=== PATIENT | female | born 1935 | race Caucasian/White ===

== ENCOUNTER 2016-08-18 23:07 | Emergency (ER) | payer MEDICARE ==
[2016-08-18] MEDS ORDERED: predniSONE 20 MG TABLET PO STA (23:23)
[2016-08-18] MEDS ORDERED: IPRATROPIUM/ALBUTEROL 3 ML NEB INH STA (23:23)
[2016-08-18] MEDS ORDERED: IPRATROPIUM/ALBUTEROL 3 ML NEB INH ONE (23:28)
[2016-08-18] MEDS ORDERED: predniSONE 20 MG TABLET ONE (23:40)
[2016-08-19] MEDS ORDERED: ALBUTEROL 8 GM INHALER INH STA (00:09)
[2016-08-19] MEDS ORDERED: ALBUTEROL NEB 2.5 MG/3 ML INH STA (00:09)
[2016-08-19] MEDS ORDERED: ALBUTEROL NEB 2.5 MG/3 ML INH ONE (00:23)
[2016-08-19] MEDS ORDERED: ALBUTEROL 8 GM INHALER INH ONE (00:23)
== END 2016-08-19 00:47 | disposition home or self-care (01) ==
DX: J45.21 Mild intermittent asthma with (acute) exacerbation (principal); R03.0 Elevated blood-pressure reading, without diagnosis of hypertension
CPT/HCPCS: 71020; 94640; 94664; 99283; A9270; J7512; J7613; J7620

== ENCOUNTER 2016-09-12 13:43 | Outpatient (CLI) | payer MEDICARE | END 2016-09-12 13:44 | disposition critical access hospital (66) | LOC: EMS 13:43 | PROVIDERS: ATTEND Surgery | DX: R06.02 Shortness of breath (principal); M54.2 Cervicalgia | CPT/HCPCS: A0425; A0427 ==

== ENCOUNTER 2016-09-12 14:03 | Emergency (ER) | payer MEDICARE ==
[2016-09-12 14:09] VITALS: BP 153/43
[2016-09-12] MEDS ORDERED: ALBUTEROL NEB 2.5 MG/3 ML INH STA (14:10)
[2016-09-12] MEDS ORDERED: methylPREDNISolone SUCCINATE 125 MG/2 ML VIAL IVP STA (14:11)
--- NOTE | 2016-09-12 14:15 | ED Physician Documentation ---
PD HPI DYSPNEA - Stated complaint Stated Complaint: ASTHMA - Chief complaint Chief Complaint: Resp - History obtained from History obtained from: Patient, EMS, Other (Cyracom tablet) - History of Present Illness Timing - onset: Other (She has a history of asthma. She is visiting here from out of town and doesn't have any of her medications are inhalers. The last 3 days she's been short of breath with a mild cough but no chest pain or fever. It is similar prior episodes. She is feeling much better after a duo neb en route.) Review of Systems Constitutional: denies: Fever, Chills Cardiac: denies: Chest pain / pressure, Palpitations, Pedal edema, Calf pain Respiratory: reports: Dyspnea, Cough. denies: Hemoptysis, Wheezing GI: denies: Abdominal Pain PD PAST MEDICAL HISTORY - Past Medical History Respiratory: Asthma Musculoskeletal: Osteoarthritis - Present Medications Home Medications: Ambulatory Orders Medication Instructions Recorded Confirmed HYDROcodone/ACET 10/325 [Maceo 10 ORAL Q8HR PRN 08/18/16 mg/325 mg] predniSONE [Deltasone] 60 mg PO DAILY 5 Days 08/19/16 Albuterol Sulfate [Proventil Hfa 1 - 2 puffs IH Q4H PRN #1 09/12/16 Inhaler] [email or web address] predniSONE [Deltasone] 60 mg PO DAILY 5 Days 09/12/16 - Allergies Allergies/Adverse Reactions: Allergies Allergy/AdvReac Type Severity Reaction Status Date / Time No Known Drug Allergies Allergy Verified 09/12/16 14:09 - Social History Does the pt smoke?: No Smoking Status: Never smoker Does the pt drink ETOH?: No Does the pt have substance abuse?: No - Immunizations Immunizations are current?: Yes PD ED PE NORMAL - Vitals Vital signs reviewed: Yes - General General: Alert and oriented X 3, No acute distress - HEENT HEENT: PERRL, EOMI, Ears normal - Neck Neck: Supple, no meningeal sign, No bony TTP - Cardiac Cardiac: RRR, No murmur - Respiratory Respiratory: No respiratory distress, Other (wheezy throughout, not diminished, nonlabored) - Abdomen Abdomen: Non tender - Derm Derm: No rash - Neuro Neuro: Alert and oriented X 3, Normal speech - Psych Psych: Normal mood, Normal affect Results - Vitals Vitals: Vital Signs - 24 hr 09/12/16 14:00 Temperature 36.7 C Heart Rate 84 Respiratory 20 Rate Blood Pressure 153/43 H O2 Saturation 97 Oxygen O2 Source Room air PD MEDICAL DECISION MAKING - ED course ED course: She presents with an asthma exacerbation. She is already feeling much better after the duo neb en route. She is still little wheezy here and was administered another neb here as well as steroid. The patient and family were counseled as to the diagnosis and need for followup. I counseled the patient with regard to signs and symptoms that would necessitate an urgent reevaluation in the emergency department. They understand they are welcome to return at any time if worse or if not improving as expected. This document was made in part using voice recognition software. While efforts are made to proofread this document, sound alike and grammatical errors may occur. Departure - Departure Disposition: 01 Home, Self Care Clinical Impression: Asthma Qualifiers: Asthma severity: mild intermittent Asthma complication type: with acute exacerbation Qualified Code(s): J45.21 - Mild intermittent asthma with (acute) exacerbation Condition: Good Record reviewed to determine appropriate education?: Yes Instructions: Asthma Dc Prescriptions: predniSONE [Deltasone] 60 mg PO DAILY 5 Days Albuterol Sulfate [Proventil Hfa Inhaler] 1 - 2 puffs IH Q4H PRN #1 [email or web address] PRN Reason: Cough Print Language: Frisian Comments: Call your doctor to arrange a follow up appointment. Make the next available appointment. In the interim return anytime if worse or if new symptoms develop. Your blood pressure was elevated today on check in to the emergency department. This does not mean that you have hypertension, it is a common phenomenon to check into the emergency department and have elevated blood pressure. I recommend that you see your primary care physician within the week to have it rechecked when you're feeling better. Llame a larose mdico para concertar zia antonia de seguimiento. Jeb la prxima antonia disponible. En el retorno intermedio en cualquier momento si es peor o si se desarrollan nuevos sntomas. Larose presin arterial se elev hoy en el check-in al departamento de emergencia. [place] no significa que usted tiene hipertensin, es un fenmeno comn para comprobar en el departamento de emergencia y tienen presin arterial elevada. Recomiendo que brain a larsoe mdico de atencin primaria dentro de la semana para que se vuelva a verificar cuando se sienta mejor.
[2016-09-12] MEDS ORDERED: ALBUTEROL NEB 2.5 MG/3 ML INH ONE (14:18)
== END 2016-09-12 14:40 | disposition home or self-care (01) ==
LOC: EDUNIT# → ED 14:03
DX: J45.21 Mild intermittent asthma with (acute) exacerbation (principal); Z76.0 Encounter for issue of repeat prescription; R03.0 Elevated blood-pressure reading, without diagnosis of hypertension
CPT/HCPCS: 94640; 99283; J7613

== ENCOUNTER 2016-10-08 23:56 | Emergency (ER) | payer MEDICARE ==
--- NOTE | 2016-10-09 00:04 | ED Physician Documentation ---
PD HPI DYSPNEA - Stated complaint Stated Complaint: SHORTNESS OF BREATH - History obtained from History obtained from: Patient, Family - History of Present Illness Timing - onset: Enter time (23:00), Today Timing - details: Abrupt onset Pain level now: 0 Worsened by: Exertion Associated symptoms: Wheezing. No: Chest pain / discomfort Similar symptoms before: Diagnosis (asthma) Recently seen: Emergency Dept - Additional information Additional information: c/o sudden onset dyspnea and wheezing c/w previous asthma exacerbations. has been visiting [place] and thus does not have local PMD nor medications for her asthma (T+R last month from [facility] ED for same but has run out of the inhaler) Review of Systems Constitutional: denies: Fever Cardiac: reports: Reviewed and negative Respiratory: reports: Dyspnea, Wheezing. denies: Cough PD PAST MEDICAL HISTORY - Past Medical History Respiratory: Asthma Musculoskeletal: Osteoarthritis - Present Medications Home Medications: Ambulatory Orders Medication Instructions Recorded Confirmed HYDROcodone/ACET 10/325 [Brandon 10 1 each ORAL Q8HR PRN 08/18/16 10/09/16 mg/325 mg] Albuterol Sulfate [Proventil Hfa 1 - 2 puffs IH Q4H PRN #1 09/12/16 10/09/16 Inhaler] [email or web address] predniSONE [Deltasone] 40 mg PO DAILY 4 Days 10/09/16 - Allergies Allergies/Adverse Reactions: Allergies Allergy/AdvReac Type Severity Reaction Status Date / Time No Known Drug Allergies Allergy Verified 09/12/16 14:09 - Social History Does the pt smoke?: No Smoking Status: Never smoker Does the pt drink ETOH?: No Does the pt have substance abuse?: No - Immunizations Immunizations are current?: Yes PD ED PE NORMAL - Vitals Vital signs reviewed: Yes - General General: Alert and oriented X 3, No acute distress, Well developed/nourished - Cardiac Cardiac: RRR, No murmur - Respiratory Respiratory: No respiratory distress PD ED PE EXPANDED - Respiratory Respiratory: Wheezing (bilateral expiratory ) Results - Vitals Vitals: Vital Signs - 24 hr 10/09/16 10/09/16 10/09/16 00:04 00:20 00:52 Temperature 36.4 C L Heart Rate 57 L 70 90 Respiratory 22 18 20 Rate Blood Pressure 190/84 H 187/89 H O2 Saturation 95 97 10/09/16 01:00 Temperature Heart Rate 78 Respiratory 20 Rate Blood Pressure O2 Saturation Oxygen O2 Source Room air PD MEDICAL DECISION MAKING - ED course Complexity details: reviewed old records, re-evaluated patient (On reevaluation , after duoneb and PO prednisone, patient reports feeling significant improvement and is comfortable with d/c home, given rx for prednisone and albuterol MDI to take home), considered differential, d/w patient, d/w family Departure - Departure Disposition: Home, Self Care Clinical Impression: Asthma Condition: Good Instructions: ED Reactive Airway Disease Prescriptions: predniSONE [Deltasone] 40 mg PO DAILY 4 Days Discharge Date/Time: 10/09/16 01:18
[2016-10-09] MEDS ORDERED: predniSONE 20 MG TABLET PO STA (00:14)
[2016-10-09] MEDS ORDERED: IPRATROPIUM/ALBUTEROL 3 ML NEB INH STA (00:14)
[2016-10-09] MEDS ORDERED: IPRATROPIUM/ALBUTEROL 3 ML NEB INH ONE (00:20)
[2016-10-09] MEDS ORDERED: predniSONE 20 MG TABLET ONE (00:48)
[2016-10-09 00:53] VITALS: BP 187/89
[2016-10-09] MEDS ORDERED: ALBUTEROL 8 GM INHALER INH STA (00:57)
[2016-10-09] MEDS ORDERED: ALBUTEROL 18 GM INHALER INH ONE (01:04)
== END 2016-10-09 01:18 | disposition home or self-care (01) ==
LOC: ED 23:56
DX: J45.909 Unspecified asthma, uncomplicated (principal)
CPT/HCPCS: 94640; 94664; 99283; J7512; J7620

== ENCOUNTER 2017-01-03 17:45 | Emergency (ER) | payer MEDICARE ==
[2017-01-03] MEDS ORDERED: HYDROmorphone 1 MG/ML SYRINGE IVP STA (20:08)
[2017-01-03] MEDS ORDERED: ONDANSETRON 4 MG/2 ML VIAL IVP STA (20:08)
[2017-01-03 20:14] LABS: BILIRUBIN,URINE NEGATIVE (NEGATIVE); PH,URINE 5.5 PH (5.0-7.5)
[2017-01-03 20:17] LABS: UA CHARGE (STRIP ONLY) YES; UR CULTURE IF IND NOT INDICATED
[2017-01-03 20:28] LABS: BASOPHILS # (AUTO) 0.1 10^3/uL (0.0-0.1); BASOPHILS % (AUTO) 0.9 %; EOSINOPHILS # (AUTO) 0.1 10^3/uL (0.0-0.7); HCT - HEMATOCRIT 37.1 % (37.0-47.0); HGB - HEMOGLOBIN 12.5 g/dL (12.0-16.0); LYMPHOCYTES # (AUTO) 1.2 10^3/uL (1.5-3.5); LYMPHOCYTES % (AUTO) 11.9 %; MEAN CORPUSCULAR HEMOGLOBIN 32.1 pg (27.0-31.0); MEAN CORPUSCULAR HGB CONC 33.7 g/dL (32.0-36.0); MEAN CORPUSCULAR VOLUME 95.3 fL (81.0-99.0); MEAN PLATELET VOLUME 6.9 fL (7.9-10.8); MONOCYTES # (AUTO) 0.6 10^3/uL (0.0-1.0); MONOCYTES % (AUTO) 5.8 %; NEUTROPHILS % (AUTO) 80.4 %; RED BLOOD COUNT 3.89 10^6/uL (4.20-5.40); RED CELL DISTRIBUTION WIDTH 13.4 % (12.0-15.0); UNCORRECTED WHITE BLOOD COUNT 9.9 x10^3/uL; WHITE BLOOD COUNT 9.9 x10^3/uL (4.8-10.8)
[2017-01-03 20:38] LABS: CALCIUM 8.6 mg/dL (8.5-10.3); CREATININE 0.9 mg/dL (0.4-1.0); POTASSIUM 3.9 mmol/L (3.5-5.0)
[2017-01-03] MEDS ORDERED: ONDANSETRON 4 MG/2 ML VIAL ONE (20:53)
[2017-01-03] MEDS ORDERED: HYDROmorphone 1 MG/ML SYRINGE ONE (20:53)
--- NOTE | 2017-01-03 21:20 | CT Preliminary Report ---
Exam: CT Head W/O IMPRESSION: Generalized age-related cortical atrophic changes without evidence of acute intracranial abnormality. [facility] SITE ID: [id number]
[2017-01-03] MEDS ORDERED: SODIUM CHLORIDE 0.9% 1,000 ML IV ONE (21:22)
--- NOTE | 2017-01-03 21:27 | CT Preliminary Report ---
Exam: CT Cervical Spine W/O IMPRESSION: 1. No acute bony abnormality. 2. Degree of degenerative changes less than expected for age. [facility] SITE ID: [id number]
--- NOTE | 2017-01-03 21:41 | CT Preliminary Report ---
Exam: CT Lumbar Spine W/O IMPRESSION: 1. No acute bony abnormality. 2. 5.1 x 5.0 x 3.7 cm complex cystic lesion right ovary. Correlate clinically to determine if follow- up pelvic ultrasound on a nonemergent basis should be considered. 3. Chronic lung disease. 4. Moderate central spinal canal stenosis and small right-sided disk herniation L4-L5. [facility] SITE ID: [id number]
--- NOTE | 2017-01-03 21:52 | CT Preliminary Report ---
Exam: CT Pelvis W/O IMPRESSION: 1. Acute hairline fracture left inferior pubic ramus. 2. 5.1 x 5.0 x 3.7 cm cystic lesion right adnexa. This could represent an ovarian neoplasm. Correlate clinically to determine if a pelvic ultrasound on a nonemergent basis should be considered. 3. Small disk herniation to the right and moderate central spinal canal stenosis at L4-L5. 4. Normal bilateral hips. [facility] SITE ID: [id number]
--- NOTE | 2017-01-03 21:55 | CT Report ---
EXAM: CT CERVICAL SPINE WITHOUT CONTRAST DATE: 01/03/2017 08:50 p.m. HISTORY: Fall on stairs. Head trauma. Neck pain. COMPARISONS: None. TECHNIQUE: Thin-section axial images were acquired of the cervical spine without contrast. Post-proce ssing: Coronal and sagittal reformats. Other: None. In accordance with CT protocol optimization, one or more of the following dose reduction techniques w ere utilized for this exam: automated exposure control, adjustment of mA and/or KV based on patient s ize, or use of iterative reconstructive technique. FINDINGS: Alignment: 3 mm degenerative anterior subluxation of C2 on C3 as well as C3 on C4. Bones: No fracture or bone lesion. Interspace Levels/Facets: Multilevel mild to moderate degenerative changes. Greatest degree of central spinal canal stenosis is mild at C5-C6 and C6-C7. Old small central disk herniation at C5-C6. Multilevel mild to moderate bony neural foraminal compromise. Musculature: Normal. No fatty atrophy. Other: The paravertebral and prevertebral soft tissues are normal. The lung apices are clear. IMPRESSION: 1. No acute bony abnormality. 2. Degree of degenerative changes less than expected for age. [facility] Referring Provider Line: [phone] SITE ID: [id number]
--- NOTE | 2017-01-03 21:55 | CT Report ---
EXAM: CT HEAD EXAM DATE: 01/03/2017 08:49 p.m.. CLINICAL HISTORY: Closed head injury. COMPARISON: None. TECHNIQUE: Multiaxial CT images were obtained from the foramen magnum to the vertex. IV contrast: Non e. Reformats: Coronal. In accordance with CT protocol optimization, one or more of the following dose reduction techniques w ere utilized for this exam: automated exposure control, adjustment of mA and/or KV based on patient s ize, or use of iterative reconstructive technique. FINDINGS: Parenchyma: No intraparenchymal hemorrhage. No evidence of mass, midline shift, or CT findings of acu te infarction. Prado-white differentiation is distinct. Extraaxial Spaces: Normal for age. No subdural or epidural collections identified. Ventricles: The ventricles and cortical sulci are enlarged, consistent with age-related tissue loss. Sinuses: Imaged paranasal sinuses, orbits, and mastoids show no significant abnormality. Bones: No evidence of fracture or calvarial defect. Other: Diffuse chronic microangiopathic white matter changes are evident. IMPRESSION: Generalized age-related cortical atrophic changes without evidence of acute intracranial abnormality. [facility] Referring Provider Line: [phone] SITE ID: [id number]
--- NOTE | 2017-01-03 21:55 | CT Report ---
EXAM: CT LUMBAR SPINE WITHOUT CONTRAST EXAM DATE: 01/03/2017 08:51 p.m. CLINICAL HISTORY: Back pain after a fall downstairs. COMPARISONS: Two-view chest 08/18/2016. No prior CT study. TECHNIQUE: Thin-section axial images were acquired of the lumbar spine from T9-T10 to tip of the cocc yx without contrast. Post-processing: Coronal and sagittal reformats. Other: None. In accordance with CT protocol optimization, one or more of the following dose reduction techniques w ere utilized for this exam: automated exposure control, adjustment of mA and/or KV based on patient s ize, or use of iterative reconstructive technique. FINDINGS: Alignment: Moderate kyphosis at T11-T12. Bones: Five ltc-psy-tcpnsyl lumbar vertebral bodies are present. Old marked wedging at T11 and T12 with borderline compromise of the bony central spinal canal. Trabecular cortical patterns are intact. Osteopenia. Disk Levels/Facets: T12-L1: Unremarkable. L1-L2: Unremarkable. L2-L3: Unremarkable. L3-L4: Unremarkable. L4-L5: Moderate to marked narrowing. Small right-sided disk herniation. Moderate central spinal canal stenosis. Moderate to marked right and moderate left L4-L5 neural foraminal compromise. L5-S1: Unremarkable. Musculature: Normal. No fatty atrophy. Other: 5.0 x 5.1 x 3.7 cm complex cystic lesion, right adnexa. Hysterectomy. IMPRESSION: 1. No acute bony abnormality. 2. 5.1 x 5.0 x 3.7 cm complex cystic lesion, right ovary. This could represent an ovarian neoplasm. C orrelate clinically to determine if follow-up pelvic ultrasound on a nonemergent basis should be cons idered. 3. Chronic lung disease. 4. Moderate central spinal canal stenosis and small right-sided disk herniation at L4-L5. [facility] Referring Provider Line: [phone] SITE ID: [id number]
--- NOTE | 2017-01-03 22:00 | CT Report ---
EXAM: CT BONY PELVIS WITHOUT CONTRAST EXAM DATE: 01/03/2017 08:51 p.m. CLINICAL HISTORY: Left hip pain status post fall. COMPARISON: None. TECHNIQUE: Thin-section axial images were acquired of the pelvis without contrast. Post-processing: C oronal and sagittal reformats. Other: None. In accordance with CT protocol optimization, one or more of the following dose reduction techniques w ere utilized for this exam: automated exposure control, adjustment of mA and/or KV based on patient s ize, or use of iterative reconstructive technique. FINDINGS: Bones: Osteopenia. Acute nondisplaced fracture involving the medial-most aspect of the left inferior pubic ramus. A supe rior component not confidently visualized. Sacroiliac Joints: No widening, erosions, or sclerosis. Symphysis Pubis: Unremarkable. Right Hip: The joint space is preserved. No calcified loose bodies. Left Hip: The joint space is preserved. No calcified loose bodies. Musculature: Normal. No fatty atrophy. Pelvic Cavity: Hysterectomy. 5.1 x 5.0 x 3.7 cm complex cystic lesion, right adnexa. Other: Small disk herniation to the right and moderate central spinal canal stenosis at L4-L5 as discussed o n the dedicated CT lumbar spine. IMPRESSION: 1. Acute hairline fracture of the left inferior pubic ramus. 2. 5.1 x 5.0 x 3.7 cm cystic lesion, right adnexa. This could represent an ovarian neoplasm. Correlat e clinically to determine if a pelvic ultrasound on a nonemergent basis should be considered. 3. Small disk herniation to the right and moderate central spinal canal stenosis at L4-L5. 4. Normal bilateral hips. [facility] Referring Provider Line: [phone] SITE ID: [id number]
[2017-01-03] MEDS ORDERED: KETOROLAC 60 MG/2 ML VIAL IVP STA (22:03)
[2017-01-03] MEDS ORDERED: KETOROLAC 15 MG/ML VIAL ONE (22:11)
[2017-01-03] MEDS ORDERED: oxyCODONE/ACET 5/325 Prepack 4 PO STA (22:53)
[2017-01-03] MEDS ORDERED: oxyCODONE/ACET 5/325 Prepack 4 PO ONE (23:00)
--- NOTE | 2017-01-03 23:01 | ED Physician Documentation ---
History of Present Illness - Stated complaint Stated Complaint: FELL DOWN STAIRS - Chief complaint Chief Complaint: General - History obtained from History obtained from: Patient, Family - History of Present Illness Timing: Prior to arrival - Additonal information Additional information: This patient is a 81-year-old from [place] who is here visiting her family. She is in her normal state of health when she was going up the stairs. She will fell backwards and bumped her head on the stairs and was initially lying there on the ground. There is no loss of consciousness however. Family denies any preceding symptoms or illness. Currently the patient complains of right posterior headache, neck pain, low back pain and pain over the left groin area internally. Review of systems: For pertinent positive and negatives in the review of systems please see the history of present illness, otherwise all other systems have been reviewed and are negative. Dragon disclaimer: Parts of this medical record were created using voice recognition technology. Because of the inherent limitations of this system, occasional same sounding word substitutions do occur and persist despite proofreading. Please read the document for context. Review of Systems Constitutional: denies: Fever, Chills, Myalgias Cardiac: denies: Chest pain / pressure, Palpitations Respiratory: denies: Dyspnea, Cough GI: denies: Abdominal Pain, Abdominal Swelling, Nausea, Vomiting, Constipation, Diarrhea : denies: Dysuria PD PAST MEDICAL HISTORY - Past Medical History Cardiovascular: None Respiratory: Asthma Neuro: None Endocrine/Autoimmune: None GI: None INTERPRETER FOR THE DEAF: None : None HEENT: None Psych: None Musculoskeletal: Osteoarthritis Derm: None - Past Surgical History Past Surgical History: No /INTERPRETER FOR THE DEAF: Hysterectomy - Present Medications Home Medications: Ambulatory Orders Medication Instructions Recorded Confirmed Albuterol Sulfate [Proventil Hfa 1 - 2 puffs IH Q4H PRN #1 09/12/16 01/03/17 Inhaler] [email or web address] Amitriptyline [Elavil] 25 mg PO DAILY 01/03/17 01/03/17 Ibuprofen 600 mg PO TID PRN #14 tablet 01/03/17 Naproxen [Naprosyn] 250 mg PO DAILY 01/03/17 01/03/17 Tramadol HCl 50 mg PO Q8HR PRN #14 tablet 01/03/17 - Allergies Allergies/Adverse Reactions: Allergies Allergy/AdvReac Type Severity Reaction Status Date / Time No Known Drug Allergies Allergy Verified 09/12/16 14:09 - Social History Does the pt smoke?: No Smoking Status: Never smoker Does the pt drink ETOH?: No Does the pt have substance abuse?: No - Immunizations Immunizations are current?: Yes PD ED PE NORMAL - Vitals Vital signs reviewed: Yes - General General: Alert and oriented X 3, No acute distress, Well developed/nourished, Other (Pleasant elderly female lying in the bed in no apparent distress. She is awake and alert and answers questions appropriately) - HEENT HEENT: PERRL, EOMI, Pharynx benign, Dentition benign, Other (Small posterior cephalohematoma on exam, rates) - Neck Neck: Supple, no meningeal sign, No bony TTP, No adenopathy, No JVD, No bruit - Cardiac Cardiac: RRR, No murmur, No gallop, No rub - Respiratory Respiratory: No respiratory distress - Abdomen Abdomen: Normal bowel sounds - Back Back: No CVA TTP, Other (Tender in the bilateral lower lumbar spine L4-L5 area) - Derm Derm: Normal color, Warm and dry, No rash, Other - Extremities Extremities: No deformity, Normal ROM s pain - Neuro Neuro: Alert and oriented X 3, clearance representative 2-12 intact, No motor deficit, No sensory deficit Results - Vitals Vitals: Vital Signs - 24 hr 01/03/17 01/03/17 17:59 22:03 Temperature 36.9 C Heart Rate 87 80 Respiratory 22 20 Rate Blood Pressure 137/69 H 153/54 H O2 Saturation 98 96 Oxygen O2 Source Room air - Labs Labs: Laboratory Tests 01/03/17 01/03/17 01/03/17 20:10 20:20 20:20 WBC 9.9 RBC 3.89 L Hgb 12.5 Hct 37.1 MCV 95.3 MCH 32.1 H MCHC 33.7 RDW 13.4 Plt Count 243 MPV 6.9 L Neut # 8.0 H Lymph # 1.2 L Pettis # 0.6 Eos # 0.1 Baso # 0.1 Absolute Nucleated RBC 0.00 Nucleated RBCs 0.0 Sodium 138 Potassium 3.9 Chloride 106 Carbon Dioxide 27 Anion Gap 5.0 L BUN 28 H Creatinine 0.9 Estimated GFR (MDRD) 60 L Glucose 88 Calcium 8.6 Troponin I Urine Color DARK YELLOW Urine Clarity CLEAR Urine pH 5.5 Ur Specific [place] >=1.030 H Urine Protein NEGATIVE Urine Glucose (UA) NEGATIVE Urine Ketones NEGATIVE Urine Occult Blood NEGATIVE Urine Nitrite NEGATIVE Urine Bilirubin NEGATIVE Urine Urobilinogen 0.2 (NORMAL) Ur Leukocyte Esterase NEGATIVE Ur Microscopic Review NOT INDICATED Urine Culture Comments NOT INDICATED 01/03/17 20:20 WBC RBC Hgb Hct MCV MCH MCHC RDW Plt Count MPV Neut # Lymph # Pettis # Eos # Baso # Absolute Nucleated RBC Nucleated RBCs Sodium Potassium Chloride Carbon Dioxide Anion Gap BUN Creatinine Estimated GFR (MDRD) Glucose Calcium Troponin I < 0.04 Urine Color Urine Clarity Urine pH Ur Specific [place] Urine Protein Urine Glucose (UA) Urine Ketones Urine Occult Blood Urine Nitrite Urine Bilirubin Urine Urobilinogen Ur Leukocyte Esterase Ur Microscopic Review Urine Culture Comments PD MEDICAL DECISION MAKING - ED course ED course: Well-appearing elderly woman who had a mechanical fall this afternoon. There were no preceding symptoms that would suggest a medical cause to her fall. On examination she has a small posterior cephalohematoma, mild posterior neck pain , low back pain and tenderness and tenderness over the left inguinal area with a normal-appearing leg length and without significant tenderness of left hip on range of motion testing. An EKG is done and shows normal sinus rhythm normal OR QRS QT interval without ST segment elevation depression or T-wave inversion. An IV line was started she is given IV fluids for mild ketonuria. She is also given intravenous narcotic analgesia here in emergency department. A CT scan of the head, neck, lumbar spine and bony pelvis was done. The head and neck portion show age-related changes. The lumbar portion shows a severely arthritic spine without evidence of any new fracture. There was incidental finding of a right sided complex ovarian cysts consistent with a possible neoplasm. There is also a hairline fracture and inferior pubic rami. These findings were discussed with the family members. A copy of the CT and CT report were given to them and if they stay in town I am recommending follow-up with RECEPTIONIST SECRETARY regarding ovarian cyst. I told him that they should expect them that they should expect her to be very sore but that ambulation is good and that they should try and encourage her to get up and move around. Pain medications and anti-inflammatories were prescribed as well as referral to see RECEPTIONIST SECRETARY. Disposition: To home Clinical impression: 1. Mechanical fall 2. Lumbar strain with severe DJD and spinal stenosis on CT scan 3. Left inferior ramus pubic fracture 4. Incidental finding of complex mass right ovary possibly consistent with a neoplasm Departure - Departure Disposition: 01 Home, Self Care Clinical Impression: Ovarian mass, right Lumbar back pain Qualifiers: Chronicity: acute Back pain laterality: bilateral Sciatica presence: without sciatica Qualified Code(s): M54.5 - Low back pain Pubic ramus fracture Qualifiers: Encounter type: initial encounter Fracture type: closed Laterality: left Qualified Code(s): S32.592A - Other specified fracture of left pubis, initial encounter for closed fracture Condition: Good Instructions: ED Sprain Strain Lumbar Follow-Up: Jessy Pinzon, [Provider Admit Priv/Credential] - Prescriptions: Tramadol HCl 50 mg PO Q8HR PRN #14 tablet PRN Reason: Pain Ibuprofen 600 mg PO TID PRN #14 tablet PRN Reason: Pain Comments: Your mother sprained her back tonight and has a small hairline fracture in the left inferior pubic ramus. This fracture causes pain but heals nicely on its own without any type of intervention. She did have the finding of a cystic lesion on the right adnexa that could represent an ovarian cancer. This will need additional follow-up including an ultrasound and RECEPTIONIST SECRETARY consultation. Expect her mother to be very sore for the next few days. She will need pain medication and help with walking.
[2017-01-03 23:04] VITALS: BP 142/60
== END 2017-01-03 23:04 | disposition home or self-care (01) ==
LOC: ED 17:45
DX: S32.592A Other specified fracture of left pubis, initial encounter for closed fracture (principal); W10.9XXA Fall (on) (from) unspecified stairs and steps, initial encounter; Y92.019 Unspecified place in single-family (private) house as the place of occurrence of the external cause; N83.201 Unspecified ovarian cyst, right side; M54.5 Low back pain; M19.90 Unspecified osteoarthritis, unspecified site
CPT/HCPCS: 36415; 70450; 72125; 72131; 72192; 80048; 81003; 84484; 85025; 93005; 96374; 96375; 99283; 99284; J1170; 81001; 87086

== ENCOUNTER 2017-03-16 17:19 | Outpatient (CLI) | payer MEDICARE ==
--- NOTE | 2017-03-17 10:36 | MRI Report ---
EXAM: RIGHT SHOULDER MRI WITHOUT CONTRAST EXAM DATE: 03/16/2017 06:05 PM. CLINICAL HISTORY: Severe right shoulder pain. COMPARISON: None. TECHNIQUE: Multiplanar, multisequence T1-weighted and fluid-sensitive sequences of the shoulder witho ut contrast. Other: None. FINDINGS: Acromioclavicular Region: The acromion is type II. Mild acromioclavicular joint osteoarthrosis. The c oracoacromial and coracoclavicular ligaments are intact. Small amount of fluid at the subacromial/sub deltoid bursa. Glenohumeral Region: No subluxation. No effusion or loose bodies. The articular cartilage is unremark able. The glenohumeral ligaments and joint capsule are unremarkable. Bone Marrow: No fracture, marrow edema or bone lesions. Labrum: The labrum is unremarkable on this nonarthrographic study. Musculature/Rotator Cuff: There is a small, approximately 5 x 3 mm focal partial-thickness bursal alex face tear at the distal end of the supraspinatus-infraspinatus tendon junction. The tear involves kelly roximately 50% of the tendon thickness at this location. There is tendinosis at the remaining suprasp inatus and infraspinatus tendons. The teres minor and subscapularis tendons are unremarkable. No padma a or fatty atrophy. Biceps Tendon: The long head of the biceps tendon and biceps jaun are intact. Other: The subcutaneous tissues are unremarkable. IMPRESSION: 1. A small 5 x 3 mm focal moderate-grade partial-thickness bursal surface tear at the distal end of t he supraspinatus-infraspinatus tendon junction. Tendinosis at the remaining supraspinatus and infrasp inatus tendons. No full-thickness rotator cuff tear. 2. Mild subacromial/subdeltoid bursitis. 3. Mild acromioclavicular joint osteoarthrosis. [facility] MUSCULOSKELETAL RADIOLOGY SECTION Referring Provider Line: [phone] SITE ID: [id number]
== END 2017-03-16 17:20 | disposition home or self-care (01) ==
LOC: DI 17:19
PROVIDERS: ATTEND Internal Medicine
DX: M75.101 Unspecified rotator cuff tear or rupture of right shoulder, not specified as traumatic (principal); M75.51 Bursitis of right shoulder; M19.011 Primary osteoarthritis, right shoulder

== ENCOUNTER 2017-03-21 17:09 | Outpatient (CLI) | payer MEDICARE ==
--- NOTE | 2017-03-21 18:11 | CT Preliminary Report ---
Exam: CT HEAD W/O IMPRESSION: Negative nonenhanced head CT. [facility] SITE ID: [id number]
--- NOTE | 2017-03-21 18:13 | CT Report ---
EXAM: CT HEAD EXAM DATE: 03/21/2017 05:25 PM. CLINICAL HISTORY: LEG NUMBNESS. COMPARISON: 01/03/2017. TECHNIQUE: Multiaxial CT images were obtained from the foramen magnum to the vertex. Reformats: Coron al. IV contrast: None. In accordance with CT protocol optimization, one or more of the following dose reduction techniques w ere utilized for this exam: automated exposure control, adjustment of mA and/or KV based on patient s ize, or use of iterative reconstructive technique. FINDINGS: Parenchyma: No intraparenchymal hemorrhage. No evidence of mass, midline shift, or CT findings of inf arction. Prado-white differentiation is distinct. Extraaxial Spaces: No subdural or epidural collections identified. Ventricles: Normal in size and position. Sinuses and Orbits: Imaged paranasal sinuses, orbits, and mastoids show no significant abnormality. Bones: No evidence of fracture or calvarial defect. Other: None. IMPRESSION: Negative nonenhanced head CT. [facility] Referring Provider Line: [phone] SITE ID: [id number]
== END 2017-03-21 17:10 | disposition home or self-care (01) ==
LOC: DI 17:09
PROVIDERS: ATTEND Internal Medicine
DX: R20.2 Paresthesia of skin (principal)
CPT/HCPCS: 70450

== ENCOUNTER 2017-04-19 21:59 | Outpatient (CLI) | payer MEDICARE ==
--- NOTE | 2017-04-19 23:36 | Ultrasound Preliminary Report ---
Exam: US DUPLEX EXT VEINS LEFT IMPRESSION: 1. No evidence for left lower extremity deep venous thrombosis. 2. Mid calf superficial thrombophlebitis. [facility] The above findings were discussed with Dr Foley by Dr. Tree Castillo at 23:34 hrs on 04/19. SITE ID: [id number]
--- NOTE | 2017-04-19 23:38 | Ultrasound Report ---
EXAM: LEFT LOWER EXTREMITY VENOUS ULTRASOUND EXAM DATE: 04/19/2017 11:25 PM. CLINICAL HISTORY: PAIN EDEMA. COMPARISON: None. TECHNIQUE: Real-time sonographic vascular imaging was performed by the skull chopper through the lower extremity utilizing both color-flow and Doppler spectral analysis. Multiple front office representative static gopal ges were saved for review. FINDINGS: Common Femoral Vein (CFV): Normal. CFV-GSV Junction: Normal. Profunda Femoral Vein (PFV): Normal. Femoral Vein (FV) Prox: Normal. Femoral Vein (FV) Mid: Normal. Femoral Vein (FV) Dist: Normal. Popliteal Vein: Normal. Posterior Tibial Veins: The visualized segments appear patent. Peroneal Veins: The visualized segments appear patent. Contralateral Side CFV: Normal. Other: Thrombosed superficial veins at midcalf level. IMPRESSION: 1. No evidence for left lower extremity deep venous thrombosis. 2. Mid calf superficial thrombophlebitis. [facility] The above findings were discussed with Dr Foley by Dr. Tree Castillo at 23:34 hrs on 04/19. Referring Provider Line: [phone] SITE ID: [id number]
== END 2017-04-19 22:00 | disposition home or self-care (01) ==
LOC: DI 21:59
PROVIDERS: ATTEND Internal Medicine
DX: I80.8 Phlebitis and thrombophlebitis of other sites (principal)

== ENCOUNTER 2017-05-12 08:39 | Outpatient (CLI) | payer MEDICARE ==
--- NOTE | 2017-05-12 20:35 | Ultrasound Report ---
EXAM: PELVIC ULTRASOUND EXAM DATE: 05/12/2017 09:19 AM. CLINICAL HISTORY: Ovarian mass. COMPARISON: CT 01/03/2017. TECHNIQUE: Realtime transabdominal pelvic scan performed to identify the uterus and adnexa and as an overview of other pelvic structures, with static image documentation. FINDINGS: Uterus: Surgically absent. Right Ovary: 5.9 x 4.2 x 5.2 cm, volume 128 cc. Multiple cysts, largest 4.9 x 3.5 x 3.9 cm, with a sm aller complex cyst noted 2.6 x 1.7 x 2.0 cm. Left Ovary: 2.1 x 0.9 x 1.6 cm, volume 1.6 cc. Normal echotexture and blood flow. Free Fluid: None. Other: None. IMPRESSION: Multicystic right ovarian abnormality, simple and complex, without wall thickening or inc reased vascularity. Low-grade neoplasm not excluded. [facility] Referring Provider Line: [phone] SITE ID: [id number]
== END 2017-05-12 08:40 | disposition home or self-care (01) ==
LOC: DI 08:39
PROVIDERS: ATTEND Internal Medicine
DX: N83.291 Other ovarian cyst, right side (principal)
CPT/HCPCS: 76856

== ENCOUNTER 2017-05-12 08:40 | Outpatient (CLI) | payer MEDICARE ==
--- NOTE | 2017-05-13 02:33 | Ultrasound Report ---
EXAM: CAROTID DOPPLER ULTRASOUND EXAM DATE: 05/12/2017 08:57 AM. CLINICAL HISTORY: Cerebrovascular accident. COMPARISON: None. TECHNIQUE: Real-time sonographic vascular imaging was performed by the prepress operator through the [employer] d arterial system with a linear transducer utilizing color-flow, Doppler flow and spectral analysis. Multiple patient service representative static images were saved for review. FINDINGS: VELOCITIES: Right: CCA Prox: PSV 76 cm/sec. CCA Dist: PSV 91 cm/sec, EDV 18 cm/sec. ICA Prox: PSV 61 cm/sec, EDV 15 cm/sec. ICA Mid: PSV 61 cm/sec, EDV 17 cm/sec. ICA Dist: PSV 64 cm/sec, EDV 17 cm/sec. ECA: PSV 59 cm/sec. Vertebral Artery: PSV 81 cm/sec. RVA flow direction: Antegrade. Left: CCA Prox: PSV 97 cm/sec. CCA Dist: PSV 66 cm/sec, EDV 19 cm/sec. ICA Prox: PSV 66 cm/sec, EDV 16 cm/sec. ICA Mid: PSV 61 cm/sec, EDV 18 cm/sec. ICA Dist: PSV 75 cm/sec, EDV 23 cm/sec. ECA: PSV 53 cm/sec. Vertebral Artery: PSV 55 cm/sec. LVA flow direction: Antegrade. Other: None. IMPRESSION: 1. No hemodynamically significant stenoses. 2. Vertebral arteries are antegrade in flow. Validated velocity measurements with angiographic measurements and velocity criteria are extrapolated from diameter data as defined by the Society of Radiologists in Ultrasound Consensus Conference Radi ology 2003; 229;340-346. [facility] Referring Provider Line: [phone] SITE ID: [id number]
== END 2017-05-12 08:41 | disposition home or self-care (01) ==
LOC: DI 08:40
PROVIDERS: ATTEND Internal Medicine
DX: I63.9 Cerebral infarction, unspecified (principal); I27.20 Pulmonary hypertension, unspecified; N83.291 Other ovarian cyst, right side
CPT/HCPCS: 76856; 93306; 93880

== ENCOUNTER 2017-06-19 08:00 | Outpatient (CLI) | payer MEDICARE | END 2017-06-19 08:01 | LOC: LAB.N 08:00 | PROVIDERS: ATTEND Obstetrics & Gynecology | DX: N83.9 Noninflammatory disorder of ovary, fallopian tube and broad ligament, unspecified (principal); D39.11 Neoplasm of uncertain behavior of right ovary | CPT/HCPCS: 36415; 86304 ==

== ENCOUNTER 2017-09-06 08:00 | Outpatient (CLI) | payer MEDICARE ==
[2017-09-06 19:10] LABS: BASOPHILS # (AUTO) 0.1 10^3/uL (0.0-0.1); BASOPHILS % (AUTO) 1.2 %; EOSINOPHILS # (AUTO) 0.3 10^3/uL (0.0-0.7); EOSINOPHILS % (AUTO) 4.9 %; HGB - HEMOGLOBIN 12.6 g/dL (12.0-16.0); LYMPHOCYTES # (AUTO) 2.2 10^3/uL (1.5-3.5); LYMPHOCYTES % (AUTO) 36.7 %; MEAN CORPUSCULAR HEMOGLOBIN 30.9 pg (27.0-31.0); MEAN CORPUSCULAR HGB CONC 32.9 g/dL (32.0-36.0); MEAN CORPUSCULAR VOLUME 93.9 fL (81.0-99.0); MEAN PLATELET VOLUME 8.2 fL (7.9-10.8); MONOCYTES # (AUTO) 0.5 10^3/uL (0.0-1.0); MONOCYTES % (AUTO) 8.7 %; NEUTROPHILS # (AUTO) 2.9 10^3/uL (1.5-6.6); NEUTROPHILS % (AUTO) 48.5 %; PLT - PLATELET COUNT 235 10^3/uL (130-450); RED BLOOD COUNT 4.08 10^6/uL (4.20-5.40); RED CELL DISTRIBUTION WIDTH 14.3 % (12.0-15.0); WHITE BLOOD COUNT 6.1 x10^3/uL (4.8-10.8)
[2017-09-06 19:16] LABS: BILIRUBIN,URINE NEGATIVE (NEGATIVE); GLUCOSE, URINE (UA) NEGATIVE (NEGATIVE); KETONES,URINE (UA) NEGATIVE (NEGATIVE); LEUKOCYTE ESTERASE, URINE SMALL (NEGATIVE); NITRITE,URINE NEGATIVE (NEGATIVE); OCCULT BLOOD,URINE TRACE-INTA (NEGATIVE); PH,URINE 5.5 PH (5.0-7.5); PROTEIN,URINE NEGATIVE (NEGATIVE); UROBILINOGEN,URINE 0.2 (NORMAL) E.U./dL (NORMAL)
[2017-09-06 19:20] LABS: CLARITY,URINE HAZY (CLEAR)
[2017-09-06 19:24] LABS: CREATININE 0.7 mg/dL (0.4-1.0)
[2017-09-06 19:52] LABS: BACTERIA,URINE Many /HPF (None Seen); MUCUS,URINE Few Strands; SQUAMOUS EPITHELIAL CELL,UR MANY Squamous (<= Few)
== END 2017-09-06 08:01 ==
LOC: LAB.N 08:00
PROVIDERS: ATTEND Obstetrics & Gynecology
DX: N83.291 Other ovarian cyst, right side (principal); R61 Generalized hyperhidrosis; R31.9 Hematuria, unspecified
CPT/HCPCS: 36415; 81001; 82565; 85025; 85651; 86304

== ENCOUNTER 2017-09-06 11:11 | Outpatient (CLI) | payer MEDICARE ==
--- NOTE | 2017-09-06 12:56 | XRAY Report ---
TWO VIEW CHEST: 09/06/2017 COMPARISON: Two view chest 03/06/2017. INDICATION: COPD. TECHNIQUE: Two views. 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 The lungs appear clear. No pneumothorax or pleural effusion. Mediastinum unremarkable. Lower thoracic compression fractures appear unchanged. IMPRESSION: NO EVIDENCE OF ACUTE THORACIC PROCESS. TD: 09/06/2017 12:55 [facility]
== END 2017-09-06 11:12 | disposition home or self-care (01) ==
LOC: DI.N 11:11
PROVIDERS: ATTEND Obstetrics & Gynecology
DX: J44.9 Chronic obstructive pulmonary disease, unspecified (principal); N83.291 Other ovarian cyst, right side; R61 Generalized hyperhidrosis; R31.9 Hematuria, unspecified
CPT/HCPCS: 36415; 71046; 81001; 82565; 85025; 85651; 86304

== ENCOUNTER 2018-02-23 00:24 | Emergency (ER) | payer MEDICARE ==
--- NOTE | 2018-02-23 00:38 | ED Physician Documentation ---
PD HPI UPPER EXT INJURY - Stated complaint Stated Complaint: LT HAND INJURY - Chief complaint Chief Complaint: Ext Problem - History obtained from History obtained from: Patient, Friend (who is helping translate) - History of Present Illness Location: Left, Wrist Type of injury: Fall (she says she slipped in shower and caught her fall with left hand/wrist.) Where injury occurred: Home Timing - onset: How many hours ago (1-2), Today Timing - details: Abrupt onset, Still present Improved by: Rest Worsened by: Moving Associated symptoms: Swelling (at the wrist). No: Weakness, Numbness Contributing factors: No: Anticoagulated, Prior ortho surgery Similar symptoms before: Has not had sx before Recently seen: Not recently seen Review of Systems Neurologic: denies: Focal weakness, Numbness, Headache, Head injury PD PAST MEDICAL HISTORY - Past Medical History Cardiovascular: None Respiratory: Asthma Endocrine/Autoimmune: None GI: None TANNING SOLUTION MAKER: None : None HEENT: None Psych: None Musculoskeletal: Osteoarthritis Derm: None - Past Surgical History Past Surgical History: No /TANNING SOLUTION MAKER: Hysterectomy - Present Medications Home Medications: Ambulatory Orders Medication Instructions Recorded Confirmed Albuterol Sulfate [Proventil Hfa 1 - 2 puffs IH Q4H PRN #1 09/12/16 01/03/17 Inhaler] [email or web address] Amitriptyline [Elavil] 25 mg PO DAILY 01/03/17 01/03/17 Ibuprofen 600 mg PO TID PRN #14 tablet 01/03/17 Naproxen [Naprosyn] 250 mg PO DAILY 01/03/17 01/03/17 Tramadol HCl 50 mg PO Q8HR PRN #14 tablet 01/03/17 HYDROcod/ACETAM 5/325 [[place] 5/325] 1 tab PO Q6H PRN #15 tablet 02/23/18 Naproxen 375 mg PO BID #20 tablet 02/23/18 - Allergies Allergies/Adverse Reactions: Allergies Allergy/AdvReac Type Severity Reaction Status Date / Time No Known Drug Allergies Allergy Verified 02/23/18 00:34 - Social History Does the pt smoke?: No Smoking Status: Never smoker Does the pt drink ETOH?: No Does the pt have substance abuse?: No - Immunizations Immunizations are current?: Yes PD ED PE NORMAL - Vitals Vital signs reviewed: Yes - General General: Alert and oriented X 3, Well developed/nourished - Neck Neck: Supple, no meningeal sign, No bony TTP - Cardiac Cardiac: RRR, No murmur - Respiratory Respiratory: Clear bilaterally - Abdomen Abdomen: Soft, Non tender - Derm Derm: Normal color, Warm and dry - Extremities Extremities: Other (left wrist with tenderness and swelling, some ecchymosis, dorsal aspect. ) - Neuro Neuro: Alert and oriented X 3, No motor deficit, No sensory deficit Results - Vitals Vitals: Vital Signs - 24 hr 02/23/18 02/23/18 00:32 02:30 Temperature 36.7 C Heart Rate 79 72 Respiratory 18 18 Rate Blood Pressure 172/76 H 152/77 H O2 Saturation 97 99 Oxygen O2 Source Room air - Rads (name of study) left wrist Radiology: Prelim report reviewed, EMP read contemporaneously (distal radius impaction fracture. also ulnar styloid fracture. ) Procedures - Splint (location) left wrist Splint applied by: Tech Type of splint: Fiberglass, Short arm Other: Patient tolerated well, No complications, Neurovascular intact, Sling provided PD MEDICAL DECISION MAKING - ED course Complexity details: reviewed results, considered differential, d/w patient Departure - Departure Disposition: 01 Home, Self Care Clinical Impression: Fall from slip, trip, or stumble Qualifiers: Encounter type: initial encounter Qualified Code(s): W01.0XXA - Fall on same level from slipping, tripping and stumbling without subsequent striking against object, initial encounter Fracture, Colles, left, closed Qualifiers: Encounter type: initial encounter Qualified Code(s): S52.532A - Colles' fracture of left radius, initial encounter for closed fracture Condition: Stable Record reviewed to determine appropriate education?: Yes Instructions: ED Fx Colles Wrist No Redu Requ Follow-Up: [facility] [Provider Group] Prescriptions: HYDROcod/ACETAM 5/325 [[place] 5/325] 1 tab PO Q6H PRN #15 tablet PRN Reason: Pain Naproxen 375 mg PO BID #20 tablet Print Language: Romanian Comments: Keep the wrist splint in place. Use the sling to help with elevating and re sting the arm. Ice and elevate the hand often to reduce swelling. Follow-up this coming week with orthopedics, call Sunday for an appointment. Naproxen or ibuprofen 2-3 times daily for pain and inflammation. Add Tylenol or hydrocodone as needed for pain. This will take about 6 weeks to fully heal up. It should be able to be treated with cast and not require surgery. Discharge Date/Time: 02/23/18 02:42
[2018-02-23] MEDS ORDERED: IBUPROFEN 600 MG TABLET PO STA (00:57)
[2018-02-23] MEDS ORDERED: HYDROcod/ACETAM 5/325 MG TABLET PO STA (00:57)
--- NOTE | 2018-02-23 02:01 | XRAY Report ---
Reason: SWELLING/PAIN L WRIST Procedure Date: 02/23/2018 Accession Number: [id number] / [id number] Procedure: XR - Wrist 3 View LT CPT Code: FULL RESULT: EXAM: LEFT WRIST RADIOGRAPHY EXAM DATE: 02/23/2018 01:51 AM. CLINICAL HISTORY: SWELLING/PAIN L WRIST. COMPARISON: None. TECHNIQUE: 3 views. FINDINGS: Bones: Osteopenia. Fracture of the distal radial metaphysis with mild dorsal angulation of the distal radial articular surface. Ulnar styloid fracture. Joints: No dislocation. Soft Tissues: Soft tissue swelling. IMPRESSION: 1. Colles' fracture with mild dorsal angulation of the distal radial articular surface. 2. Ulnar styloid fracture. [facility]
[2018-02-23 02:33] VITALS: BP 152/77
== END 2018-02-23 02:42 | disposition home or self-care (01) ==
LOC: ED 00:24
DX: S52.532A Colles' fracture of left radius, initial encounter for closed fracture (principal); W18.2XXA Fall in (into) shower or empty bathtub, initial encounter; Y93.E1 Activity, personal bathing and showering
CPT/HCPCS: 29125; 73110; 99283; A9270

== ENCOUNTER 2018-04-01 11:35 | Emergency (ER) | payer MEDICARE ==
--- NOTE | 2018-04-01 12:11 | ED Physician Documentation ---
PD HPI DYSPNEA - Stated complaint Stated Complaint: ASTHMA - Chief complaint Chief Complaint: Resp - History obtained from History obtained from: Patient - History of Present Illness Timing - onset: How many days ago (1-2) Timing - onset during: Light activity Timing - duration: Days (chronic asthma and wheezing but worse the past couple days due to out of MDI and meds.) Timing - details: Gradual onset, Still present, Waxing and waning Inciting event(s): Out of meds. No: URI Improved by: Rest, Sitting up Worsened by: Exertion Associated symptoms: Wheezing. No: Fever, Cough, Hemoptysis, Chest pain / discomfort, Bilateral edema Similar symptoms before: Diagnosis (asthma) Recently seen: Emergency Dept (for broken wrist) Review of Systems Constitutional: denies: Fever, Chills Nose: denies: Rhinorrhea / runny nose, Congestion Throat: denies: Sore throat Cardiac: denies: Chest pain / pressure, Palpitations Respiratory: reports: Dyspnea, Wheezing. denies: Cough GI: denies: Nausea, Vomiting, Diarrhea Skin: denies: Rash, Lesions PD PAST MEDICAL HISTORY - Past Medical History Cardiovascular: None Respiratory: Asthma Neuro: None Endocrine/Autoimmune: None GI: None ACCESS REPRESENTATIVE: None : None HEENT: None Psych: None Musculoskeletal: Osteoarthritis Derm: None - Past Surgical History Past Surgical History: No /ACCESS REPRESENTATIVE: Hysterectomy - Present Medications Home Medications: Ambulatory Orders Medication Instructions Recorded Confirmed Albuterol Sulfate [Proventil Hfa 1 - 2 puffs IH Q4H PRN #1 09/12/16 01/03/17 Inhaler] [email or web address] Amitriptyline [Elavil] 25 mg PO DAILY 01/03/17 01/03/17 Ibuprofen 600 mg PO TID PRN #14 tablet 01/03/17 Naproxen [Naprosyn] 250 mg PO DAILY 01/03/17 01/03/17 Tramadol HCl 50 mg PO Q8HR PRN #14 tablet 01/03/17 HYDROcod/ACETAM 5/325 [[place] 5/325] 1 tab PO Q6H PRN #15 tablet 02/23/18 Naproxen 375 mg PO BID #20 tablet 02/23/18 Albuterol Sulf [Ventolin Hfa 2 - 3 puffs INH Q4HR PRN #1 inhaler 04/01/18 Inhaler] Amitriptyline HCl 50 mg PO DAILY PM #20 tablet 04/01/18 Hydrocodone/Acetaminophen [[place] 1 each PO Q6H PRN #15 tablet 04/01/18 5-325 Tablet] Naproxen 375 mg PO BID #20 tablet 04/01/18 predniSONE [Prednisone] 40 mg PO DAILY #15 tablet 04/01/18 - Allergies Allergies/Adverse Reactions: Allergies Allergy/AdvReac Type Severity Reaction Status Date / Time No Known Drug Allergies Allergy Verified 02/23/18 00:34 - Social History Does the pt smoke?: No Smoking Status: Never smoker Does the pt drink ETOH?: No Does the pt have substance abuse?: No - Immunizations Immunizations are current?: Yes - POLST Patient has POLST: No PD ED PE NORMAL - Vitals Vital signs reviewed: Yes - General General: Alert and oriented X 3, No acute distress, Well developed/nourished - HEENT HEENT: Ears normal, Pharynx benign - Neck Neck: Supple, no meningeal sign, No adenopathy - Cardiac Cardiac: RRR, No murmur - Respiratory Respiratory: No: No respiratory distress, Clear bilaterally (wheezing diffusely) - Abdomen Abdomen: Soft, Non tender - Derm Derm: Normal color, Warm and dry - Extremities Extremities: No deformity, No tenderness to palpate, Normal ROM s pain, No edema , No calf tenderness / cord - Neuro Neuro: Alert and oriented X 3, No motor deficit, Normal speech Results - Vitals Vitals: Oxygen O2 Source Room air - Rads (name of study) chest xray Radiology: Prelim report reviewed, EMP read contemporaneously (no inflitrates nor other acute process) PD MEDICAL DECISION MAKING - ED course Complexity details: re-evaluated patient (improved a lot with neb treatments here. ), considered differential (asthma exac and mostly due to being out of meds. Also out of sleep med and NSAIDs/pain meds for her wrist (still healing fracture). ), d/w patient, d/w family (helped with translation) Departure - Departure Disposition: 01 Home, Self Care Clinical Impression: Exacerbation of asthma Qualifiers: Asthma severity: moderate Asthma persistence: unspecified Qualified Code(s): J45.901 - Unspecified asthma with (acute) exacerbation Dyspnea Qualifiers: Dyspnea type: shortness of breath Qualified Code(s): R06.02 - Shortness of breath Condition: Stable Record reviewed to determine appropriate education?: Yes Prescriptions: Albuterol Sulf [Ventolin Hfa Inhaler] 2 - 3 puffs INH Q4HR PRN #1 inhaler PRN Reason: Shortness Of Air/Wheezing Amitriptyline HCl 50 mg PO DAILY PM #20 tablet Hydrocodone/Acetaminophen [[place] 5-325 Tablet] 1 each PO Q6H PRN #15 tablet PRN Reason: Pain Naproxen 375 mg PO BID #20 tablet predniSONE [Prednisone] 40 mg PO DAILY #15 tablet Comments: Stay well-hydrated. Use the albuterol inhaler 2-3 puffs 4 times a day at least an extra times every 1-2 hours if needed for the next few days. Prednisone as directed. Continue your other medications of the Elavil at night for sleep and naproxen for pain and inflammation and hydrocodone if needed. Follow-up with your primary care regarding further prescription refills and also to recheck on your asthma flareup. Discharge Date/Time: 04/01/18 13:13
[2018-04-01] MEDS ORDERED: ALBUTEROL NEB 2.5 MG/3 ML INH STA (12:26)
[2018-04-01] MEDS ORDERED: DEXAMETHASONE 10 MG/ML VIAL PO STA (12:26)
[2018-04-01] MEDS ORDERED: NAPROXEN 250 MG TABLET PO STA (12:26)
[2018-04-01 12:33] VITALS: BP 144/83
--- NOTE | 2018-04-01 14:38 | XRAY Report ---
Reason: cough and wheezing Procedure Date: 04/01/2018 Accession Number: [id number] / [id number] Procedure: XR - Chest 2 View X-Ray CPT Code: 32274 FULL RESULT: EXAM: CHEST RADIOGRAPHY EXAM DATE: 04/01/2018 02:12 PM. CLINICAL HISTORY: Cough and wheezing. COMPARISON: CHEST 2 VIEW PA/LAT 03/06/2017 2:29 PM. TECHNIQUE: 2 views. FINDINGS: Lungs/Pleura: There is focal opacity at the right lateral lung base. This is stable. There is no evidence of acute consolidation or effusion. No evidence of pneumothorax. Mediastinum: There is mild cardiomegaly. There is thoracic aortic calcification. Other: There are stable anterior wedge compression fractures at the thoracolumbar junction. No acute bony abnormalities are seen. IMPRESSION: 1. There is mild cardiomegaly with thoracic aortic calcification and tortuosity. 2. Stable convexity of the right lateral diaphragm. This likely represents diaphragmatic hernia. 3. No acute intrathoracic plain film abnormality. [facility]
== END 2018-04-01 13:13 | disposition home or self-care (01) ==
LOC: EDUNIT# → ED 11:35
DX: J45.901 Unspecified asthma with (acute) exacerbation (principal)
CPT/HCPCS: 71046; 94640; 99283; A9270

== ENCOUNTER 2018-06-15 05:13 | Outpatient (CLI) | payer MEDICARE | END 2018-06-15 05:14 | disposition critical access hospital (66) | LOC: EMS 05:13 | PROVIDERS: ATTEND Surgery | DX: R06.02 Shortness of breath (principal) | CPT/HCPCS: A0425; A0427 ==

== ENCOUNTER 2018-06-15 05:40 | Inpatient (IN) | payer MEDICARE ==
--- NOTE | 2018-06-15 06:01 | ED Physician Documentation ---
PD HPI DYSPNEA - Stated complaint Stated Complaint: SOA - Chief complaint Chief Complaint: Resp - History obtained from History obtained from: Patient, Family, EMS - History of Present Illness Timing - onset: Enter time (01:30), Today Timing - onset during: Rest Timing - details: Abrupt onset Pain level max: 0 Pain level now: 0 Improved by: O2, Inhaler/neb (duoneb by medics en route), Rest Worsened by: Exertion, Coughing Associated symptoms: Fever (per medic report, temperature taken in field was over 103), Cough. No: Chest pain / discomfort Recently seen: Emergency Dept - Additional information Additional information: Initial HPI/ROS obtained via translation using [employer]. additional information from medic report and then via family member who arrives later in ED evaluation and is able to translate and provide additional history. BIBA for dyspnea since 1:30 AM. T+R from ED 3 days ago, where she was evaluated for chills/sweats, n/v, and abdominal pain. testing included CT A/P which revealed left lower lobe infiltrate and she was given/rx doxycycline. also noted were findings s/o metastatic disease to liver. patient says nausea, vomi ting, and abdominal pain have resolved but she had dyspnea early this AM to the point of not being able to talk to family. of note, household contact was recently diagnosed with influenza by swab Review of Systems Constitutional: reports: Fever (per patient, but subjective (has not taken temperature at home). medic reports 103 temp [employer].), Chills, Sweats Cardiac: reports: Reviewed and negative Respiratory: reports: Dyspnea, Cough, Wheezing GI: reports: Reviewed and negative : denies: Dysuria, Frequency PD PAST MEDICAL HISTORY - Past Medical History Cardiovascular: None Respiratory: Asthma Neuro: None Endocrine/Autoimmune: None GI: None MANAGER GAMES: None : None HEENT: None Psych: None Musculoskeletal: Osteoarthritis Derm: None - Past Surgical History Past Surgical History: No /MANAGER GAMES: Hysterectomy - Present Medications Home Medications: Ambulatory Orders Medication Instructions Recorded Confirmed Albuterol Sulf [Ventolin Hfa 2 puffs INH Q4HR PRN 06/15/18 06/15/18 Inhaler] Amitriptyline HCl 50 mg PO QPM 06/15/18 06/15/18 Hydrocodone/Acetaminophen 1 tab PO TID 06/15/18 06/15/18 [Hydrocodone-Acetamin 10-325 mg] - Allergies Allergies/Adverse Reactions: Allergies Allergy/AdvReac Type Severity Reaction Status Date / Time No Known Drug Allergies Allergy Verified 06/15/18 05:45 - Social History Does the pt smoke?: No Smoking Status: Never smoker Does the pt drink ETOH?: No Does the pt have substance abuse?: No - Immunizations Immunizations are current?: Yes - POLST Patient has POLST: No PD ED PE NORMAL - Vitals Vital signs reviewed: Yes - General General: Alert and oriented X 3, Well developed/nourished, Other (tachyoneic, audible wheezing during conversation) - HEENT HEENT: PERRL, EOMI, Moist mucous membranes - Neck Neck: Supple, no meningeal sign - Cardiac Cardiac: RRR, No murmur - Abdomen Abdomen: Normal bowel sounds, Soft, Non tender, Non distended - Back Back: No CVA TTP - Derm Derm: Normal color, Warm and dry - Extremities Extremities: No edema PD ED PE EXPANDED - Respiratory Respiratory: Wheezing, Decreased breath sounds Results - Vitals Vitals: Vital Signs - 24 hr 06/15/18 06/15/18 06/15/18 05:42 05:45 06:08 Temperature 37.6 C H Heart Rate 138 H 132 H 127 H Respiratory 36 H 26 H 24 Rate Blood Pressure 157/78 H 157/78 H 139/64 H O2 Saturation 90 L 96 95 06/15/18 06/15/18 06/15/18 06:41 06:45 07:07 Temperature Heart Rate 118 H 118 H 131 H Respiratory 25 H 24 30 H Rate Blood Pressure 163/65 H 166/76 H O2 Saturation 98 94 06/15/18 06/15/18 07:58 08:32 Temperature Heart Rate 116 H 117 H Respiratory 20 20 Rate Blood Pressure 147/71 H O2 Saturation 98 Oxygen O2 Source Room air Oxygen Flow Rate 2 - EKG (time done) No standard instances Rate: Rate (enter#) (129), Tachy Rhythm: Sinus tachycardia [place]: Normal Intervals: Normal GA, 2nd degree AVB type 1 Ischemia: Normal ST segments - Labs Labs: Laboratory Tests 06/15/18 06/15/18 06/15/18 06:00 06:00 06:18 WBC 6.9 RBC 4.00 L Hgb 12.4 Hct 37.3 MCV 93.2 MCH 31.0 MCHC 33.2 RDW 12.6 Plt Count 227 MPV 7.8 L Neut # (Auto) 5.2 Lymph # (Auto) 1.0 L [place] # (Auto) 0.6 Eos # (Auto) 0.1 Baso # (Auto) 0.1 Absolute Nucleated RBC 0.01 Nucleated RBC % 0.1 Sodium 131 L Potassium 2.7 L Chloride 95 L Carbon Dioxide 25 Anion Gap 11.0 BUN 20 Creatinine 0.7 Estimated GFR (MDRD) 81 L Glucose 134 H Lactic Acid Calcium 8.4 L Total Bilirubin 0.6 AST 30 ALT 12 Alkaline Phosphatase 59 Total Protein 7.5 Albumin 3.8 Globulin 3.7 Albumin/Globulin Ratio 1.0 Lipase 21 L Urine Color Urine Clarity Urine pH Ur Specific [place] Urine Protein Urine Glucose (UA) Urine Ketones Urine Occult Blood Urine Nitrite Urine Bilirubin Urine Urobilinogen Ur Leukocyte Esterase Urine RBC Urine WBC Ur Squamous Epith Cells Urine Bacteria Ur Microscopic Review Urine Culture Comments Influenza A (Rapid) Negative Influenza B (Rapid) Negative 06/15/18 06/15/18 06:49 07:00 WBC RBC Hgb Hct MCV MCH MCHC RDW Plt Count MPV Neut # (Auto) Lymph # (Auto) [place] # (Auto) Eos # (Auto) Baso # (Auto) Absolute Nucleated RBC Nucleated RBC % Sodium Potassium Chloride Carbon Dioxide Anion Gap BUN Creatinine Estimated GFR (MDRD) Glucose Lactic Acid 2.2 Calcium Total Bilirubin AST ALT Alkaline Phosphatase Total Protein Albumin Globulin Albumin/Globulin Ratio Lipase Urine Color YELLOW Urine Clarity CLEAR Urine pH 6.0 Ur Specific [place] 1.015 Urine Protein NEGATIVE Urine Glucose (UA) 100 H Urine Ketones 15 H Urine Occult Blood MODERATE H Urine Nitrite POSITIVE H Urine Bilirubin NEGATIVE Urine Urobilinogen 0.2 (NORMAL) Ur Leukocyte Esterase NEGATIVE Urine RBC 6-10 H Urine WBC 0-3 Ur Squamous Epith Cells RARE Squamous Urine Bacteria Few Ur Microscopic Review INDICATED Urine Culture Comments INDICATED Influenza A (Rapid) Influenza B (Rapid) - Rads (name of study) chest xray Radiology: Prelim report reviewed, See rad report PD MEDICAL DECISION MAKING - ED course Complexity details: reviewed old records (records from ED visit (04/11) obtained and reviewed), reviewed results, re-evaluated patient, considered differential, d/w patient, d/w family ED course: mild improvement after duoneb en route and albuterol in ED, but she quickly desaturates to 88% on room air (from 2.5 L/min NC) at rest and continues to have wheezing that is audible when I am standing at bedside. Departure - Departure Disposition: [address] [facility] DC/Lilibeth Clinical Impression: Asthma, Pneumonia Condition: Stable Discharge Date/Time: 06/15/18 10:01
[2018-06-15 06:13] LABS: BASOPHILS # (AUTO) 0.1 10^3/uL (0.0-0.1); BASOPHILS % (AUTO) 1.1 %; EOSINOPHILS # (AUTO) 0.1 10^3/uL (0.0-0.7); EOSINOPHILS % (AUTO) 0.8 %; HGB - HEMOGLOBIN 12.4 g/dL (12.0-16.0); LYMPHOCYTES % (AUTO) 14.4 %; MEAN CORPUSCULAR HGB CONC 33.2 g/dL (32.0-36.0); MEAN CORPUSCULAR VOLUME 93.2 fL (81.0-99.0); MEAN PLATELET VOLUME 7.8 fL (7.9-10.8); MONOCYTES # (AUTO) 0.6 10^3/uL (0.0-1.0); MONOCYTES % (AUTO) 8.4 %; NEUTROPHILS # (AUTO) 5.2 10^3/uL (1.5-6.6); NEUTROPHILS % (AUTO) 75.3 %; PLT - PLATELET COUNT 227 10^3/uL (130-450); RED CELL DISTRIBUTION WIDTH 12.6 % (12.0-15.0); WHITE BLOOD COUNT 6.9 x10^3/uL (4.8-10.8)
[2018-06-15] MEDS ORDERED: SODIUM CHLORIDE 0.9% 1,000 ML IV STA (06:23)
[2018-06-15] MEDS ORDERED: ALBUTEROL NEB 2.5 MG/3 ML INH STA ×2 (06:24→07:43)
[2018-06-15] MEDS ORDERED: DEXAMETHASONE 10 MG/ML VIAL IVP STA (06:24)
[2018-06-15 06:26] LABS: ALBUMIN 3.8 g/dL (3.2-5.5); BILIRUBIN,TOTAL 0.6 mg/dL (0.2-1.0); CALCIUM 8.4 mg/dL (8.5-10.3); CREATININE 0.7 mg/dL (0.4-1.0); TOTAL PROTEIN 7.5 g/dL (6.7-8.2)
--- NOTE | 2018-06-15 06:53 | XRAY Report ---
Reason: hypoxia, fever, known PNA Procedure Date: 06/15/2018 Accession Number: [id number] / [id number] Procedure: XR - Chest 2 View X-Ray CPT Code: 06247 FULL RESULT: EXAM: CHEST RADIOGRAPHY EXAM DATE: 06/15/2018 06:25 AM. CLINICAL HISTORY: Hypoxia, fever, known PNA. COMPARISON: CHEST 2 VIEW 04/01/2018 1:30 PM. TECHNIQUE: 2 views. FINDINGS: Lungs/Pleura: Patient is rotated to the left. There is increased density seen in the right perihilar location possibly from a contiguous infiltrate. The periphery of the right lung is clear. The left lung is clear. Mediastinum: Not enlarged. Other: None. IMPRESSION: Probable right perihilar infiltrate. RADIA
[2018-06-15 07:31] LABS: BILIRUBIN,URINE NEGATIVE (NEGATIVE); GLUCOSE, URINE (UA) 100 mg/dL (NEGATIVE); KETONES,URINE (UA) 15 mg/dL (NEGATIVE); LEUKOCYTE ESTERASE, URINE NEGATIVE (NEGATIVE); NITRITE,URINE POSITIVE (NEGATIVE); OCCULT BLOOD,URINE MODERATE (NEGATIVE); PROTEIN,URINE NEGATIVE (NEGATIVE); UROBILINOGEN,URINE 0.2 (NORMAL) E.U./dL (NORMAL)
[2018-06-15 07:32] LABS: CLARITY,URINE CLEAR (CLEAR)
[2018-06-15] MEDS ORDERED: AZITHROMYCIN INJ 500 MG in SODIUM CHLORIDE 0.9% 250 ML IV STA (07:43)
[2018-06-15] MEDS ORDERED: cefTRIAXone 1 GM in SODIUM CHLORIDE 0.9% MINIBAG 100 ML IV STA (07:43)
[2018-06-15] MEDS ORDERED: OSELTAMIVIR 75 MG CAPSULE PO STA (07:43)
[2018-06-15 08:01] LABS: BACTERIA,URINE Few /HPF (None Seen); SQUAMOUS EPITHELIAL CELL,UR RARE Squamous (<= Few)
[2018-06-15] MEDS ORDERED: ONDANSETRON 4 MG/2 ML VIAL IVP STA (08:43)
[2018-06-15] MEDS ORDERED: ACETAMINOPHEN 325 MG TABLET PO PRN (08:46)
[2018-06-15] MEDS ORDERED: TEMAZEPAM 15 MG CAPSULE PO PRN (08:46)
[2018-06-15] MEDS ORDERED: ONDANSETRON ODT 4 MG TABLET TL PRN (08:46)
[2018-06-15] MEDS ORDERED: ONDANSETRON 4 MG/2 ML VIAL IVP PRN (08:46)
[2018-06-15] MEDS ORDERED: SODIUM CHLORIDE FLUSH 0.9% 10 ML SYRINGE IVP PRN (08:46)
--- NOTE | 2018-06-15 08:52 | HISTORY & PHYSICAL EXAMINATION ---
Chief Complaint - Chief Complaint Chief Complaint: shortness of breath History of Present Illness - Admitted From Admitted From:: ED - History Obtained From Records Reviewed: yes History obtained from: chart review, grand-daughter Exam Limitations: none - History of Present Illness HPI Comment/Other: Patsy Cleveland is a Welsh-speaking 82-year old female with a past medical history of asthma, osteoarthritis, insomnia and chronic pain. She is normally in excellent health and lives with her grand daughter Leonila. She was brought to the ED for complaints of shortness of breath, nausea, vomiting, diarrhea, dysuria, vaginal bleeding, poor appetite, fevers, chills, and a productive cough. Upon arrival to the ED she was found to have a low grade temp of 37.6 C, tachycardic with a heart rate of 138, RR of 38, hypoxia with an oxygen saturation of 90% on room air. Labs showed no abnormalities in the CBC, but CMP showed a low sodium of 131, low K+ of 2.7, chloride of 95, with no other abnormalities. A urine sample was obtained showing +glucose of 100, +ketones of 15, moderate occult, +nitrites, indicated for culture. On my exam, she complained of dysuria, mid-low back pain, was actively vomiting, with ongoing nausea and grand-daughter notes slight confusion. Imaging showed a probable right perihilar infiltrate. The patient's grand daughter states that some members of the family who live with the patient have been positive for influenza, so was started on Nieves-flu in the ED, given IV rocephin, and IV fluids. She denies chest pain or pressure, a new rash, hallucinations, falls, travel, or syncope. The patient will be admitted for the treatment of pneumonia, pyelonephritis, and asthma exacerbation. History - Past Medical History Cardiovascular: reports: Hypertension, High cholesterol Respiratory: reports: Asthma, Pneumonia, Shortness of breath Neuro: reports: Headaches Endocrine/Autoimmune: reports: None GI: reports: GERD DIAL PAINTER: reports: Ovarian cancer (not a surgical candidate) : reports: Incontinence, Nocturia, Frequency HEENT: reports: Chronic vision loss, Chronic sinusitis, Chronic hearing loss Psych: reports: None Musculoskeletal: reports: Osteoarthritis, Osteoporosis Derm: reports: None MRSA Hx?: No - Past Surgical History /DIAL PAINTER: reports: Hysterectomy - Family & Social History Family History: Mother: , Father: Family History Comment/Other: No family history since her mother when she was 4 years old, and her father was killed tragically in his 40's. Living arrangement: At home Living Situation: With family Social History Notes: The patient had 12 children, 7 of which are living. Her in 1999. She lives happily with her grand-aylaugher, Leonila Hubbard and her children. She states that she has worked her whole live and is usual very functional in the home until this illness. She denies the use of illicit drugs, alcoholism, or tobacco use. She wishes to be a FULL code. - Substance History Use: Uses substance without health or social issues: NONE Abuse: Recurrent use of substance despite neg consequences: NONE Dependence: Experiences withdrawal or developed tolerances: NONE - POLST Patient has POLST: No POLST Status: Full Code Meds/Allgy - Home Medications Home Medications: Ambulatory Orders Medication Instructions Recorded Confirmed Albuterol Sulf [Ventolin Hfa 2 puffs INH Q4HR PRN 06/15/18 06/15/18 Inhaler] Amitriptyline HCl 50 mg PO QPM 06/15/18 06/15/18 Hydrocodone/Acetaminophen 1 tab PO TID 06/15/18 06/15/18 [Hydrocodone-Acetamin 10-325 mg] - Allergies Allergies/Adverse Reactions: Allergies Allergy/AdvReac Type Severity Reaction Status Date / Time No Known Drug Allergies Allergy Verified 06/15/18 05:45 Review of Systems - Constitutional Constitutional: reports: Fatigue, Fever, Chills, Weakness, Poor appetite - Eyes Eyes: reports: Vision loss - Ears, Nose & Throat Ears, Nose & Throat: reports: Nasal congestion, Postnasal drainage, Sore throat - Cardiovascular Cariovascular: reports: Palpitations, Exertional dyspnea, Decr. exercise tolerance - Respiratory Respiratory: reports: Cough, Sputum production, Wheezing, SOB at rest, SOB with exertion - Gastrointestinal Gastrointestinal: reports: Abdominal distention, Diarrhea, Nausea, Vomiting, Ref lux/heartburn, Bloating, Poor appetite - Genitourinary Genitourinary: reports: Dysuria, Frequency, Incontinence, Nocturia - Musculoskeletal Musculoskeletal: reports: Back pain, Stiffness - Integumentary Integumentary: reports: Dryness - Neurological Neurological: reports: General weakness, Headache, Memory problems, Pre-existing deficit - Psychiatric Psychiatric: reports: Depression - Hematologic/Lymphatic Hematologic/Lymphatic: reports: Recurrent infections - All Other Systems All Other Systems: reports: Reviewed and negative Prior Level of Functionality: independent at home, but weak lately. Uses a walker if needed. Her last fall was ~1 year ago in which she fractured her pelvis but was not hospitalized. Exam - Vital Signs Reviewed Vital Signs: Yes Vital Signs: Vital Signs x48h Temp Pulse Resp BP Pulse Ox 06/15/18 08:32 117 H 20 147/71 H 98 06/15/18 07:58 116 H 20 06/15/18 07:07 131 H 30 H 166/76 H 94 06/15/18 06:45 118 H 24 06/15/18 06:41 118 H 25 H 163/65 H 98 06/15/18 06:08 127 H 24 139/64 H 95 06/15/18 05:45 132 H 26 H 157/78 H 96 06/15/18 05:42 37.6 C H 138 H 36 H 157/78 H 90 L - Physical Exam General Appearance: positive: Alert, Moderate distress, Anxious Eyes Bilateral: positive: PERRL, Conjunctivae nml ENT: positive: Pharynx nml, Dry mucous membranes Neck: positive: Thyroid nml, No JVD, Trachea midline, Lymphadenopathy (R), Lymphadenopathy (L) Respiratory: positive: Chest non-tender, Wheezes, Rhonchi Cardiovascular: positive: No gallop, Irregularly irregular, Tachycardia, Systolic murmur Peripheral Pulses: positive: 2+ Abdomen: positive: Non-tender, Nml bowel sounds Back: positive: CVA tenderness (R), CVA tenderness (L) Skin: positive: No rash, Warm, Dry Extremities: positive: Non-tender, Full ROM, No pedal edema Neurologic/Psychiatric: positive: CN's nml (2-12), Motor nml, Sensation nml, Disoriented to time, Weakness, Sensory loss, Depressed mood/affect Reflexes: Bicep (R): 3+, Bicep (L): 3+ Sepsis Event Note (H) - Evaluation Current Stage of Sepsis: Ruled out Conclusion/Plan - Problem List (1) Pyelonephritis due to Escherichia coli Conclusion/Plan: The patient complains of back pain, and on exam has bilateral mid-back tenderness. UA shows +nitrites, +occult. Patient has mild confusion, and dysuria on exam. Plan: Continue Rocephin, await final cultures, IV hydration. (2) Right middle lobe pneumonia Conclusion/Plan: A chest x-ray on admission shows a right hilar PNA. The patient had a low grade temp of 37.6 C, normal WBCs. On exam, she has audible wheezing, and congestion. Plan: Continue Rocephin, add azithromycin, continue nieves-flu, IV fluids, await sputum cultures. (3) Acute metabolic encephalopathy Conclusion/Plan: The patient's grand-daughter states that her grand-mother has been sleeping much less, getting up in the night, and has been disorientated today Plan: continuity of care, monitor mental status. (4) Exacerbation of asthma Conclusion/Plan: The patient was hypoxic, wheezy and congested on exam. Imaging confirms a right pneumonia, and has required 3-4L per nasal cannula since arriving in the ED. Family reports + influenza at home, but our flu swabs have been negative. Plan; Continue nieves-flu, IV steroids, nebulizer treatments, routine RT cares. Qualifiers: Asthma severity: moderate Asthma persistence: unspecified Qualified Code(s): J45.901 - Unspecified asthma with (acute) exacerbation (5) Hypoxia Conclusion/Plan: The patient was found to be tachypnic with a respiratory rate of 38, and an oxygen saturation of 90%; that improved with applying oxygen. Plan: Routine RT care, flutter valves, scheduled and as needed nebulizers. (6) Ovarian mass, right Conclusion/Plan: The patient has seen Dr. Newell for this known ovarian mass, that now has probable mets to the liver per imaging. The patient and grand-daughter have been told of the new liver lesion findings. Plan: Continue to monitor for bloody discharge. - Lab Results Lab results reviewed: Yes Fish Bones: 06/15/18 06:00 06/15/18 06:00 - Diagnostic Imaging Results Diagnostic Imaging Results: positive: Final report reviewed Diagnostic Imaging Results Comments: EXAM: CHEST RADIOGRAPHY EXAM DATE: 06/15/2018 06:25 AM IMPRESSION: Probable right perihilar infiltrate. Core Measures - Anticipated LOS I expect patient to be DC'd or transferred within 96 hours.: Yes - DVT/VTE - Prophylaxis VTE/DVT Device ordered at admit?: Yes
[2018-06-15] MEDS: FAMOTIDINE 20 MG TABLET PO SCH ×2 (10:35→21:54)
[2018-06-15] MEDS: POLYETHYLENE GLYCOL 3350 17 GM PACKET PO SCH (10:35)
[2018-06-15] MEDS: SODIUM CHLORIDE FLUSH 0.9% 10 ML SYRINGE IVP SCH ×2 (10:35→16:37)
[2018-06-15] MEDS ORDERED: LEVALBUTEROL 1.25 MG/3 ML NEB INH PRN (10:51)
[2018-06-15] MEDS: ENOXAPARIN 40 MG/0.4 ML SYRINGE SUBQ SCH (11:05)
[2018-06-15] MEDS ORDERED: MORPHINE 2 MG/ML CARPUJECT IVP PRN (11:49)
[2018-06-15] MEDS: POTASSIUM CHLORIDE 20 MEQ TABLET PO SCH ×2 (12:33→12:56)
[2018-06-15] MEDS: cefTRIAXone 1 GM in SODIUM CHLORIDE 0.9% MINIBAG 100 ML IV SCH (12:56)
[2018-06-15] MEDS ORDERED: POTASSIUM CHLORIDE INJ 40 MEQ in SODIUM CHLORIDE 0.9% 480 ML IV ONE (14:00)
[2018-06-15] MEDS: LEVALBUTEROL 1.25 MG/3 ML NEB INH SCH ×2 (14:12→20:42)
[2018-06-15] MEDS: methylPREDNISolone SUCCINATE 125 MG/2 ML VIAL IVP SCH ×2 (14:45→21:55)
[2018-06-15] MEDS: HYDROcod/ACETAM 10 MG/325 MG TABLET PO SCH ×2 (14:45→21:54)
[2018-06-15] MEDS: D5.45NS W/20 MEQ KCL 1,000 ML IV SCH (19:15)
[2018-06-15] MEDS: BUDESONIDE 0.5 MG/2 ML NEB INH SCH (20:42)
[2018-06-15] MEDS ORDERED: OSELTAMIVIR 75 MG CAPSULE PO SCH (21:00)
[2018-06-15] MEDS: AMITRIPTYLINE 25 MG TABLET PO SCH (21:54)
--- NOTE | 2018-06-15 23:12 | Ultrasound Report ---
Reason: complicated kidney infection Procedure Date: 06/15/2018 Accession Number: [id number] / [id number] Procedure: US - Retroperitoneal CPT Code: FULL RESULT: EXAM: RENAL ULTRASOUND EXAM DATE: 06/15/2018 09:40 PM. CLINICAL HISTORY: Complicated kidney infection. COMPARISON: PELVIS W/O 01/03/2017 8:42 PM. TECHNIQUE: Real-time scanning was performed with static images obtained. FINDINGS: Right Kidney: 10.7 x 5.1 x 4.3 cm. Suboptimal visualization of the kidney secondary to body habitus. Left Kidney: 9.7 x 3.9 x 3.8 cm. Suboptimal visualization of the kidney secondary to body habitus. No gross evidence for hydronephrosis nor renal calculi. Bladder: The right jet is faintly seen. The left jet is not identified. The prevoid bladder volume was 104 cc. The postvoid bladder volume was 24 cc. Other: There is a septated cystic lesion associated with the right adnexa which is similar to the prior CT scan of 01/03/2017 this measures 5.8 x 4.6 x 4.3 cm. Incidental note is made of two isoechoic liver lesions with hypoechoic rims. The largest in the right lobe measures 2 cm. The smaller lesion in the right lobe measures 10 mm. IMPRESSION: 1. No evidence for renal obstruction. The kidneys are difficult to fully evaluate given the patient's body habitus. 2. Right adnexal cystic mass similar to the prior CT study there are no appreciable change. 3. Two Small isoechoic lesions within the liver as described. These are nonspecific by ultrasound imaging. RADIA
[2018-06-16] MEDS: OSELTAMIVIR 30 MG CAPSULE PO SCH ×3 (00:44→20:24)
[2018-06-16] MEDS: D5.45NS W/20 MEQ KCL 1,000 ML IV SCH ×2 (03:29→14:05)
[2018-06-16 05:25] LABS: BASOPHILS % (AUTO) 0.2 %; HGB - HEMOGLOBIN 10.6 g/dL (12.0-16.0); LYMPHOCYTES # (AUTO) 0.7 10^3/uL (1.5-3.5); LYMPHOCYTES % (AUTO) 6.9 %; MEAN CORPUSCULAR HEMOGLOBIN 31.5 pg (27.0-31.0); MEAN CORPUSCULAR HGB CONC 34.1 g/dL (32.0-36.0); MEAN CORPUSCULAR VOLUME 92.2 fL (81.0-99.0); MEAN PLATELET VOLUME 7.8 fL (7.9-10.8); MONOCYTES # (AUTO) 0.4 10^3/uL (0.0-1.0); MONOCYTES % (AUTO) 4.7 %; NEUTROPHILS # (AUTO) 8.4 10^3/uL (1.5-6.6); NEUTROPHILS % (AUTO) 88.2 %; PLT - PLATELET COUNT 201 10^3/uL (130-450); RED BLOOD COUNT 3.37 10^6/uL (4.20-5.40); WHITE BLOOD COUNT 9.5 x10^3/uL (4.8-10.8)
[2018-06-16 05:40] LABS: ALBUMIN/GLOBULIN RATIO 0.9 (1.0-2.2); BILIRUBIN,TOTAL 0.4 mg/dL (0.2-1.0); CALCIUM 8.2 mg/dL (8.5-10.3); CREATININE 0.7 mg/dL (0.4-1.0); MAGNESIUM 1.8 mg/dL (1.7-2.8); PHOSPHORUS 1.7 mg/dL (2.5-4.6); TOTAL PROTEIN 6.4 g/dL (6.7-8.2)
[2018-06-16] MEDS: methylPREDNISolone SUCCINATE 125 MG/2 ML VIAL IVP SCH ×3 (06:44→21:41)
[2018-06-16] MEDS: HYDROcod/ACETAM 10 MG/325 MG TABLET PO SCH ×3 (06:45→21:41)
[2018-06-16] MEDS: SODIUM CHLORIDE FLUSH 0.9% 10 ML SYRINGE IVP SCH ×3 (06:46→17:25)
[2018-06-16] MEDS: LEVALBUTEROL 1.25 MG/3 ML NEB INH SCH ×3 (07:12→19:12)
[2018-06-16] MEDS: BUDESONIDE 0.5 MG/2 ML NEB INH SCH ×2 (07:12→19:12)
[2018-06-16] MEDS: ENOXAPARIN 40 MG/0.4 ML SYRINGE SUBQ SCH (09:15)
[2018-06-16] MEDS: POLYETHYLENE GLYCOL 3350 17 GM PACKET PO SCH (09:15)
[2018-06-16] MEDS: FAMOTIDINE 20 MG TABLET PO SCH ×2 (09:16→20:24)
[2018-06-16] MEDS: AZITHROMYCIN INJ 500 MG in SODIUM CHLORIDE 0.9% 250 ML IV SCH (09:18)
[2018-06-16] MEDS: NEUTRA-PHOS 250 MG TABLET PO SCH ×2 (12:14→17:24)
[2018-06-16] MEDS: cefTRIAXone 1 GM in SODIUM CHLORIDE 0.9% MINIBAG 100 ML IV SCH (12:15)
--- NOTE | 2018-06-16 14:22 | PROVIDER PROGRESS NOTE ---
Subjective - Prog Note Date Prog Note Date: 06/16/18 Prog Note Time: 12:00 - Subjective Pt reports feeling: Improved Subjective: Patsy wishes to return home today, and complains of ongoing shortness of breath that becomes worse with activity. She denies chest pain, chest pressure, a worsening cough, dizziness, confusion, dizziness, bleeding, or a rash. Current Medications - Current Medications Current Medications: Active Medications: Acetaminophen (Tylenol) 650 mg PO Q4HR PRN Hydrocodone Bitart/Acetaminophen ([place] 10 Mg/325 Mg) 1 tab PO TID MILE Amitriptyline HCl (Elavil) 50 mg PO QPM MILE Budesonide (Pulmicort) 0.5 mg INH RTBID MILE Enoxaparin Sodium (Lovenox) 40 mg SUBQ DAILY MILE Famotidine (Pepcid) 20 mg PO BID MILE Ceftriaxone Sodium 1 gm/ (Sodium Chloride) 100 mls @ 200 mls/hr IV Q24H MILE Azithromycin 500 mg/ Sodium (Chloride) 250 mls @ 250 mls/hr IV DAILY MILE Potassium Chloride/Sodium Chloride (Normal Saline 0.9% W/20 Meq Kcl) 1,000 mls @ 83.333 mls/hr IV .Q12H MILE Levalbuterol HCl (Xopenex) 1.25 mg INH RTQ4H PRN Levalbuterol HCl (Xopenex) 1.25 mg INH RTTID MILE Methylprednisolone Sodium Succinate (Solu-Medrol (125mg Vial)) 60 mg IVP TID MILE Morphine Sulfate (Morphine (Carpuject)) 2 mg IVP Q2HR PRN Ondansetron HCl (Zofran Inj) 4 mg IVP Q6HR PRN Ondansetron HCl (Zofran Odt) 4 mg TL Q6HR PRN Oseltamivir Phosphate (Tamiflu) 30 mg PO BID MILE Polyethylene Glycol (Miralax) 17 gm PO DAILY MILE Sodium Phosphate (K-Phos Neutral) 250 mg PO TIDWM MILE Temazepam (Restoril) 15 mg PO QPM PRN HOME meds: Albuterol Sulf [Ventolin Hfa Inhaler] 2 puffs INH Q4HR PRN 06/15/18 Amitriptyline HCl 50 mg PO QPM 06/15/18 Hydrocodone/Acetaminophen [Hydrocodone-Acetamin 10-325 mg] 1 tab PO TID 06/15/18 Objective - Vital Signs/Intake & Output Reviewed Vital Signs: Yes Vital Signs: Vital Signs x48h Temp Pulse Pulse Resp BP Pulse Ox 06/16/18 13:39 75 18 06/16/18 07:59 36 C L 74 17 119/61 100 06/16/18 07:14 63 18 Intake & Output: Intake & Output 06/13/18 06/14/18 06/15/18 06/16/18 23:59 23:59 23:59 23:59 Intake Total 2400 2871.250 Output Total 200 400 Balance 2200 2471.250 - Objective General Appearance: positive: Alert, Mild distress, Anxious Eyes Bilateral: positive: PERRL, No lid inflammation ENT: positive: Pharynx nml, Dry mucous membranes Neck: positive: Thyroid nml, No JVD, Trachea midline, Lymphadenopathy (R), Lymphadenopathy (L) Respiratory: positive: Chest non-tender, No respiratory distress, Rhonchi Cardiovascular: positive: Regular rate & rhythm, No gallop, Tachycardia, Systolic murmur Peripheral Pulses: 1+ Radial (R), 1+ Radial (L) Abdomen: positive: Non-tender, Nml bowel sounds Back: positive: Nml inspection Skin: positive: Color nml, No rash, Warm, Dry Extremities: positive: Non-tender, Full ROM, Nml appearance, No pedal edema Neurologic/Psychiatric: positive: CN's nml (2-12), Motor nml, Sensation nml, Weakness, Sensory loss, Depressed mood/affect Reflexes: Bicep (R): 3+, Bicep (L): 3+ - Lab Results Fish Bones: 06/16/18 05:15 06/16/18 05:15 Other Labs: Lab Results x24hrs 06/16/18 06/16/18 06/16/18 Range/Units 05:15 05:15 05:15 WBC (4.8-10.8) x10^3/uL RBC (4.20-5.40) 10^6/uL Hgb (12.0-16.0) g/dL Hct (37.0-47.0) % MCV (81.0-99.0) fL MCH (27.0-31.0) pg MCHC (32.0-36.0) g/dL RDW (12.0-15.0) % Plt Count (130-450) 10^3/uL MPV (7.9-10.8) fL Neut # (Auto) (1.5-6.6) 10^3/uL Lymph # (Auto) (1.5-3.5) 10^3/uL [place] # (Auto) (0.0-1.0) 10^3/uL Eos # (Auto) (0.0-0.7) 10^3/uL Baso # (Auto) (0.0-0.1) 10^3/uL Absolute Nucleated RBC x10^3/uL Nucleated RBC % /100WBC Sodium 133 L (135-145) mmol/L Potassium 3.7 (3.5-5.0) mmol/L Chloride 101 (101-111) mmol/L Carbon Dioxide 23 (21-32) mmol/L Anion Gap 9.0 (6-13) BUN 14 (6-20) mg/dL Creatinine 0.7 (0.4-1.0) mg/dL Estimated GFR (MDRD) 81 L (>89) Glucose 185 H (70-100) mg/dL Lactic Acid 1.7 (0.5-2.2) mmol/L Calcium 8.2 L (8.5-10.3) mg/dL Phosphorus 1.7 L (2.5-4.6) mg/dL Magnesium 1.8 (1.7-2.8) mg/dL Total Bilirubin 0.4 (0.2-1.0) mg/dL AST 25 (10-42) IU/L ALT 10 (10-60) IU/L Alkaline Phosphatase 45 (42-121) IU/L Total Protein 6.4 L (6.7-8.2) g/dL Albumin 3.0 L (3.2-5.5) g/dL Globulin 3.4 (2.1-4.2) g/dL Albumin/Globulin Ratio 0.9 L (1.0-2.2) Carcinoembryonic Ag 4.5 ng/mL 06/16/18 Range/Units 05:15 WBC 9.5 (4.8-10.8) x10^3/uL RBC 3.37 L (4.20-5.40) 10^6/uL Hgb 10.6 L (12.0-16.0) g/dL Hct 31.1 L (37.0-47.0) % MCV 92.2 (81.0-99.0) fL MCH 31.5 H (27.0-31.0) pg MCHC 34.1 (32.0-36.0) g/dL RDW 13.0 (12.0-15.0) % Plt Count 201 (130-450) 10^3/uL MPV 7.8 L (7.9-10.8) fL Neut # (Auto) 8.4 H (1.5-6.6) 10^3/uL Lymph # (Auto) 0.7 L (1.5-3.5) 10^3/uL [place] # (Auto) 0.4 (0.0-1.0) 10^3/uL Eos # (Auto) 0.0 (0.0-0.7) 10^3/uL Baso # (Auto) 0.0 (0.0-0.1) 10^3/uL Absolute Nucleated RBC 0.00 x10^3/uL Nucleated RBC % 0.0 /100WBC Sodium (135-145) mmol/L Potassium (3.5-5.0) mmol/L Chloride (101-111) mmol/L Carbon Dioxide (21-32) mmol/L Anion Gap (6-13) BUN (6-20) mg/dL Creatinine (0.4-1.0) mg/dL Estimated GFR (MDRD) (>89) Glucose (70-100) mg/dL Lactic Acid (0.5-2.2) mmol/L Calcium (8.5-10.3) mg/dL Phosphorus (2.5-4.6) mg/dL Magnesium (1.7-2.8) mg/dL Total Bilirubin (0.2-1.0) mg/dL AST (10-42) IU/L ALT (10-60) IU/L Alkaline Phosphatase (42-121) IU/L Total Protein (6.7-8.2) g/dL Albumin (3.2-5.5) g/dL Globulin (2.1-4.2) g/dL Albumin/Globulin Ratio (1.0-2.2) Carcinoembryonic Ag ng/mL ABX Reporting Has patient been on IV antibiotics over the past 48 hours?: Yes Sepsis Event Note (H) - Evaluation Current Stage of Sepsis: Ruled out Assessment/Plan - Problem List (1) Pyelonephritis due to Escherichia coli Impression: The patient complains of back pain, and on exam has bilateral mid-back tenderness. UA shows +nitrites, +occult. Urine culture shows no growth so far. Patient has mild confusion, and dysuria on exam that is resolved today. Plan: Continue Rocephin, await final cultures, IV hydration. (2) Right middle lobe pneumonia Impression: A chest x-ray on admission shows a right hilar PNA. The patient had a low grade temp of 37.6 C, normal WBCs. On exam, she has audible wheezing, and congestion, that has slightly improved today. Plan: Continue Rocephin, azithromycin, continue pablito-flu, IV fluids, IV steroids, await sputum cultures. (3) Acute metabolic encephalopathy Impression: The patient's grand-daughter states that her grand-mother has been sleeping much less, getting up in the night. Today, this symptom appears to be resolved, and her grand-daughter denies any further confusion. Plan: continuity of care, monitor mental status. (4) Exacerbation of asthma Impression: The patient was hypoxic, wheezy and congested on exam that has improved today. Imaging confirms a right pneumonia, and has required 3-4L per nasal cannula since arriving in the ED. Family reports + influenza at home, but our flu swabs have been negative. Plan; Continue pablito-flu, reduced IV steroids, nebulizer treatments, routine RT cares. Qualifiers: Asthma severity: moderate Asthma persistence: unspecified Qualified Code(s): J45.901 - Unspecified asthma with (acute) exacerbation (5) Hypoxia Impression: The patient was found to be tachypnic with a respiratory rate of 38, and an oxygen saturation of 90%; that improved with applying oxygen. She is down to only 1-2L via nasal cannula this morning. Plan: Routine RT care, flutter valve, scheduled and as needed nebulizers. (6) Ovarian mass, right Impression: The patient has seen Dr. Newell for this known ovarian mass, that now has probable mets to the liver per imaging. The patient and grand-daughter have been told of the new liver lesion findings. Plan: Continue to monitor for bloody discharge.
[2018-06-16] MEDS ORDERED: NS W/20 MEQ KCL 1,000 ML IV SCH (20:00)
[2018-06-16] MEDS: AMITRIPTYLINE 25 MG TABLET PO SCH (20:24)
[2018-06-17] MEDS: SODIUM CHLORIDE FLUSH 0.9% 10 ML SYRINGE IVP SCH ×2 (03:20→08:33)
[2018-06-17] MEDS: HYDROcod/ACETAM 10 MG/325 MG TABLET PO SCH (05:53)
[2018-06-17] MEDS: methylPREDNISolone SUCCINATE 125 MG/2 ML VIAL IVP SCH (05:54)
[2018-06-17 07:35] LABS: HGB - HEMOGLOBIN 10.4 g/dL (12.0-16.0); LYMPHOCYTES # (AUTO) 0.7 10^3/uL (1.5-3.5); LYMPHOCYTES % (AUTO) 3.8 %; MEAN CORPUSCULAR HEMOGLOBIN 30.6 pg (27.0-31.0); MEAN CORPUSCULAR HGB CONC 33.2 g/dL (32.0-36.0); MEAN CORPUSCULAR VOLUME 92.2 fL (81.0-99.0); MEAN PLATELET VOLUME 7.9 fL (7.9-10.8); MONOCYTES # (AUTO) 0.5 10^3/uL (0.0-1.0); MONOCYTES % (AUTO) 2.7 %; NEUTROPHILS # (AUTO) 16.8 10^3/uL (1.5-6.6); NEUTROPHILS % (AUTO) 93.5 %; PLT - PLATELET COUNT 229 10^3/uL (130-450); RED BLOOD COUNT 3.39 10^6/uL (4.20-5.40); RED CELL DISTRIBUTION WIDTH 13.2 % (12.0-15.0)
[2018-06-17] MEDS: LEVALBUTEROL 1.25 MG/3 ML NEB INH SCH (07:38)
[2018-06-17] MEDS: BUDESONIDE 0.5 MG/2 ML NEB INH SCH (07:40)
[2018-06-17 07:47] LABS: CALCIUM 8.3 mg/dL (8.5-10.3); CREATININE 0.6 mg/dL (0.4-1.0); MAGNESIUM 1.7 mg/dL (1.7-2.8); PHOSPHORUS 2.4 mg/dL (2.5-4.6)
[2018-06-17] MEDS: AZITHROMYCIN INJ 500 MG in SODIUM CHLORIDE 0.9% 250 ML IV SCH (08:32)
[2018-06-17] MEDS: ENOXAPARIN 40 MG/0.4 ML SYRINGE SUBQ SCH (08:32)
[2018-06-17] MEDS: POLYETHYLENE GLYCOL 3350 17 GM PACKET PO SCH (08:32)
[2018-06-17] MEDS: OSELTAMIVIR 30 MG CAPSULE PO SCH (08:33)
[2018-06-17] MEDS: FAMOTIDINE 20 MG TABLET PO SCH (08:33)
[2018-06-17] MEDS: NEUTRA-PHOS 250 MG TABLET PO SCH ×2 (08:33→12:10)
[2018-06-17] MEDS ORDERED: MAGNESIUM OXIDE 400 MG TABLET PO SCH (08:39)
[2018-06-17 08:40] VITALS: BP 129/70
[2018-06-17] MEDS ORDERED: DOCUSATE SODIUM 250 MG CAPSULE PO SCH (09:00)
[2018-06-17] MEDS ORDERED: SENNA 8.6 MG TABLET PO SCH (09:00)
[2018-06-17] MEDS: cefTRIAXone 1 GM in SODIUM CHLORIDE 0.9% MINIBAG 100 ML IV SCH (11:14)
--- NOTE | 2018-06-17 11:52 | Discharge Plan ---
Discharge Plan Disposition: Home, Self Care Condition: Good Prescriptions: Azithromycin 500 mg PO DAILY #5 tablet Magnesium Oxide [Mag Ox] 400 mg PO DAILY #30 tablet predniSONE [Prednisone] 20 mg PO DAILY #4 tablet Saccharomyces Boulardii [Florastor] 250 mg PO BID #60 capsule Sulfamethox/Trimeth 800/160 [Bactrim Ds] 1 each PO BID #14 tablet Diet: Regular Activity Restrictions: Activity as Tolerated Shower Restrictions: No Additional Instructions or Follow Up instructions: You had a bladder infection and pneumonia and were given IV antibiotics which should continue at home. At [facility], you were found to have lesions on your liver that are suspicious for cancer. The same was noted when doing a kidney ultrasound that was done to rule out a kidney infection. Continue the Azithromycin for 5 days for your pneumonia. Continue TMP/sulfa x7 days for your bladder infection. Take a pro-biotic for the next month or so to maintain healthy GI tract bacteria. Please avoid other sick people. Please see your PCP within one week. No Smoking: If you smoke, Please STOP! Call for help. Follow-up with: Nataliia Foley MD [Primary Care Provider] -
--- NOTE | 2018-06-17 12:04 | DISCHARGE SUMMARY ---
Discharge Summary Admit Date: 06/15/18 Discharge Date: 06/17/18 Discharging Provider: MARCIANO Marinelli Primary Care Provider: Nataliia Foley Code Status: Attempt Resuscitation Condition at Discharge: Good Discharge Disposition: 01 Home, Self Care - DIAGNOSES Admission Diagnoses: Tubulo-interstitial nephritis, not spcf as acute or chronic (N12) Lobar pneumonia, unspecified organism (J18.1) Metabolic encephalopathy (G93.41) Chronic obstructive pulmonary disease w (acute) exacerbation (J44.1) Hypoxemia (R09.02) Noninflammatory disord of ovary, fallop & broad ligmt, unsp (N83.9) Discharge Diagnoses with Status of Each Condition: Pyelonephritis due to Escherichia coli (N12) new on this admission, nitrite +, so treated accordingly with oral antibiotics to be continued at home. Right middle lobe pneumonia (J18.1) new on this admission, no oxygen needed prior to discharge, continue steroid taper and oral Azithromycin at home. Acute metabolic encephalopathy (G93.41) resolved. Asthma exacerbation in COPD (J44.1) chronic, stable. Hypoxic (R09.02) resolved. Ovarian mass, right (N83.9) chronic, stable. Liver lesion (K76.9) noted on kidney US, also reports of [facility] finding liver lesions on an abdominal CT. - HPI History of Present Illness: Patsy Cleveland is a Romanian-speaking 82-year old female with a past medical history of asthma, osteoarthritis, insomnia and chronic pain. She is normally in excellent health and lives with her grand daughter Leonila. She was brought to the ED for complaints of shortness of breath, nausea, vomiting, diarrhea, dysuria, vaginal bleeding, poor appetite, fevers, chills, and a productive cough. Upon arrival to the ED she was found to have a low grade temp of 37.6 C, tachycardic with a heart rate of 138, RR of 38, hypoxia with an oxygen saturation of 90% on room air. Labs showed no abnormalities in the CBC, but CMP showed a low sodium of 131, low K+ of 2.7, chloride of 95, with no other abnormalities. A urine sample was obtained showing +glucose of 100, +ketones of 15, moderate occult, +nitrites, indicated for culture. On my exam, she complained of dysuria, mid-low back pain, was actively vomiting, with ongoing nausea and grand-daughter notes slight confusion. Imaging showed a probable right perihilar infiltrate. The patient's grand daughter states that some members of the family who live with the patient have been positive for influenza, so was started on Nieves-flu in the ED, given IV rocephin, and IV fluids. She denies chest pain or pressure, a new rash, hallucinations, falls, travel, or syncope. The patient will be admitted for the treatment of pneumonia, pyelonephritis, and asthma exacerbation. - HOSPITAL COURSE Hospital Course: The patient was acutely confused and required oxygen upon admission. She was treated with high dose steroids, nebulizers, and IV antibiotics. She slowly improved, but by day #2, she still required oxygen, so was kept one more night. Prior to discharge, she was very anxious to return home with her grand daughter and was medically stable. Prescriptions were sent to the pharmacy and she required no home oxygen. - ALLERGIES Allergies/Adverse Reactions: Allergies Allergy/AdvReac Type Severity Reaction Status Date / Time No Known Drug Allergies Allergy Verified 06/15/18 05:45 - MEDICATIONS Home Medications: Ambulatory Orders Medication Instructions Recorded Confirmed Albuterol Sulf [Ventolin Hfa 2 puffs INH Q4HR PRN 06/15/18 06/15/18 Inhaler] Amitriptyline HCl 50 mg PO QPM 06/15/18 06/15/18 Hydrocodone/Acetaminophen 1 tab PO TID 06/15/18 06/15/18 [Hydrocodone-Acetamin 10-325 mg] Azithromycin 500 mg PO DAILY #5 tablet 06/17/18 Magnesium Oxide [Mag Ox] 400 mg PO DAILY #30 tablet 06/17/18 Saccharomyces Boulardii [Florastor] 250 mg PO BID #60 capsule 06/17/18 Sulfamethox/Trimeth 800/160 1 each PO BID #14 tablet 06/17/18 [Bactrim Ds] predniSONE [Prednisone] 20 mg PO DAILY #4 tablet 06/17/18 - PHYSICAL EXAM AT DISCHARGE General Appearance: positive: No acute distress, Alert Eyes Bilateral: positive: Normal inspection, PERRL ENT: positive: ENT inspection nml, Pharynx nml, No signs of dehydration Neck: positive: Thyroid nml, No JVD, Trachea midline, Lymphadenopathy (R), Lymphadenopathy (L) Respiratory: positive: Chest non-tender, No respiratory distress, Rhonchi Cardiovascular: positive: Regular rate & rhythm, No gallop, Tachycardia, Systolic murmur Peripheral Pulses: positive: 1+ Abdomen: positive: Non-tender, Nml bowel sounds Back: positive: Nml inspection Skin: positive: Color nml, No rash, Warm, Dry Extremities: positive: Non-tender, Full ROM, Nml appearance, No pedal edema Neurologic/Psychiatric: positive: Oriented x3, CN's nml (2-12), Motor nml, Sensation nml, Mood/affect nml Reflexes: Bicep (R): 3+, Bicep (L): 3+ - LABS Result Diagrams: 06/17/18 07:29 06/17/18 07:29 - DIAGNOSTIC IMAGING Diagnostic Imaging Results: Final report reviewed Diagnostic Imaging Results Comments: EXAM: RENAL ULTRASOUND EXAM DATE: 06/15/2018 09:40 PM IMPRESSION: 1. No evidence for renal obstruction. The kidneys are difficult to fully evaluate given the patient's body habitus. 2. Right adnexal cystic mass similar to the prior CT study there are no appreciable change. 3. Two Small isoechoic lesions within the liver as described. These are nonspecific by ultrasound imaging. EXAM: CHEST RADIOGRAPHY EXAM DATE: 06/15/2018 06:25 AM IMPRESSION: Probable right perihilar infiltrate. - SEPSIS Current Stage of Sepsis: Ruled out - FOLLOW UP Follow Up: Disposition: Home, Self Care Prescriptions: Azithromycin 500 mg PO DAILY #5 tablet Magnesium Oxide [Mag Ox] 400 mg PO DAILY #30 tablet predniSONE [Prednisone] 20 mg PO DAILY #4 tablet Saccharomyces Boulardii [Florastor] 250 mg PO BID #60 capsule Sulfamethox/Trimeth 800/160 [Bactrim Ds] 1 each PO BID #14 tablet Additional Instructions or Follow Up instructions: You had a bladder infection and pneumonia and were given IV antibiotics which should continue at home. At [facility], you were found to have lesions on your liver that are suspicious for cancer. The same was noted when doing a kidney ultrasound that was done to rule out a kidney infection. Continue the Azithromycin for 5 days for your pneumonia. Continue TMP/sulfa x7 days for your bladder infection. Take a pro-biotic for the next month or so to maintain healthy GI tract bacteria. Please avoid other sick people. Please see your PCP within one week. - TIME SPENT Time Spent in Discharge (Minutes): 45
[2018-06-17] MEDS ORDERED: methylPREDNISolone SUCCINATE 125 MG/2 ML VIAL IVP SCH (21:00)
== END 2018-06-17 13:09 | disposition home or self-care (01) | DRG 190 ==
LOC: EDUNIT# → ED 05:40 → MS3 08:46
PROVIDERS: ADMIT Nurse Practitioner; ATTEND Nurse Practitioner
DX: J18.9 Pneumonia, unspecified organism (principal); J45.909 Unspecified asthma, uncomplicated; J44.9 Chronic obstructive pulmonary disease, unspecified; G93.41 Metabolic encephalopathy; J45.901 Unspecified asthma with (acute) exacerbation; N12 Tubulo-interstitial nephritis, not specified as acute or chronic; C56.9 Malignant neoplasm of unspecified ovary; C78.7 Secondary malignant neoplasm of liver and intrahepatic bile duct; J18.1 Lobar pneumonia, unspecified organism; B96.20 Unspecified Escherichia coli [E. coli] as the cause of diseases classified elsewhere; R09.02 Hypoxemia; G47.00 Insomnia, unspecified; G89.29 Other chronic pain; M19.90 Unspecified osteoarthritis, unspecified site; Z79.52 Long term (current) use of systemic steroids; I10 Essential (primary) hypertension; E78.00 Pure hypercholesterolemia, unspecified; K21.9 Gastro-esophageal reflux disease without esophagitis; R32 Unspecified urinary incontinence; R35.1 Nocturia; R35.0 Frequency of micturition; H54.7 Unspecified visual loss; H91.90 Unspecified hearing loss, unspecified ear; J32.9 Chronic sinusitis, unspecified; M81.0 Age-related osteoporosis without current pathological fracture; Z90.710 Acquired absence of both cervix and uterus
CPT/HCPCS: 36415; 71046; 76770; 80048; 80053; 81001; 81003; 82378; 83605; 83690; 83735; 84100; 85025; 87040; 87086; 87275; 87276; 93005; 94640; 96365; 96367; 96375; 99284; 99285

== ENCOUNTER 2018-07-20 14:56 | Outpatient (CLI) | payer MEDICARE ==
--- NOTE | 2018-07-21 20:20 | XRAY Report ---
Reason: INFILTRATE,R OVARIAN MASS ON CT Procedure Date: 07/20/2018 Accession Number: [id number] / [id number] Procedure: XR - Chest 2 View X-Ray CPT Code: 89702 FULL RESULT: EXAM: CHEST RADIOGRAPHY EXAM DATE: 07/20/2018 03:22 PM. CLINICAL HISTORY: Dyspnea. COMPARISON: CHEST 2 VIEW 06/15/2018 6:25 AM LUMBAR SPINE W/O 01/03/2017 8:39 PM. TECHNIQUE: 2 views. FINDINGS: Lungs/Pleura: There is convexity within the right lung base. This likely represents eventration. No evidence of acute consolidation. No effusion. No pneumothorax. Mediastinum: Heart size is within normal limits. Other: There is a likely moderate size hiatal hernia. IMPRESSION: No acute intrathoracic plain film abnormality. [facility]
--- NOTE | 2018-07-22 08:18 | Ultrasound Report ---
Reason: RT OVARIAN MASS Procedure Date: 07/20/2018 Accession Number: [id number] / [id number] Procedure: US - Pelvic Complete CPT Code: FULL RESULT: EXAM: PELVIC ULTRASOUND EXAM DATE: 07/20/2018 03:30 PM. CLINICAL HISTORY: RT OVARIAN MASS. COMPARISON: RETROPERITONEAL 06/15/2018 9:07 PM PELVIC W/TRANSVAGINAL 05/12/2017 9:18 AM PELVIS W/O 01/03/2017 8:42 PM. TECHNIQUE: Realtime transabdominal pelvic scan performed to identify the uterus and adnexa and as an overview of other pelvic structures, with static image documentation. Patient requested no transvaginal ultrasound. FINDINGS: Uterus: Hysterectomy Right Ovary: 7.0 x 4.5 x 5.6 cm, volume 96.1 cc. Multiple right ovarian cysts with the largest cyst anechoic, measuring 5.4 x 4.4 x 4.8 cm, with an imperceptible wall, without mural nodule or septation seen, with the dominant cyst in the right ovary measuring 4.3 x [address] dated 01/03/2017. Left Ovary: 2.5 x 1.4 x 1.6 cm, volume 0.0 cc. Normal echotexture and blood flow. Free Fluid: None. Other: None. IMPRESSION: Multiple right ovarian cysts with dominant cyst measuring 5.4 cm, without mural nodule or septation seen. MRI pelvis could further characterize the cyst. Otherwise, annual ultrasound recommended [facility]
== END 2018-07-20 14:57 | disposition home or self-care (01) ==
LOC: DI 14:56
PROVIDERS: ATTEND Internal Medicine
DX: N83.201 Unspecified ovarian cyst, right side (principal); J18.9 Pneumonia, unspecified organism
CPT/HCPCS: 71046; 76856